=== PATIENT | female | born 1955 | race Caucasian/White ===

== ENCOUNTER 2018-08-15 12:04 | Emergency (ER) | payer OTHER ==
[~2018-08-15] VITALS: Ht 162.6 cm; Wt 107.5 kg
[2018-08-15] MEDS ORDERED: IV NORMAL SALINE 1000ML BAG 1,000 ML IV ONE (13:00)
[2018-08-15] MEDS ORDERED: ONDANSETRON PF 4 MG/2 ML VIAL. IV ONE (13:00)
[2018-08-15 13:17] LABS: CALCIUM 9.7 mg/dL (8.5-10.1); CREATININE 1.4 mg/dL (0.6-1.0); POTASSIUM 4.5 mmol/L (3.5-5.1)
--- NOTE | 2018-08-15 13:17 | RAD ---
Portable chest, 08/15/2018: HISTORY: Cough, chest tightness The heart size and pulmonary vascularity are normal. No pulmonary infiltrate is seen. There is no evidence of pleural fluid. IMPRESSION: No acute cardiopulmonary abnormality is detected. Electronically signed by: Blue Cheney MD (08/15/2018 1:13 PM) [facility]
[2018-08-15 13:23] LABS: ALBUMIN 3.4 g/dL (3.4-5.0); ALBUMIN/GLOBULIN RATIO 0.8 (1.0-1.7); TOTAL BILIRUBIN 0.6 mg/dL (0.2-1.0); TOTAL PROTEIN 7.8 g/dL (6.4-8.2)
--- NOTE | 2018-08-15 13:36 | EKG ---
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
[2018-08-15 13:45] LABS: BASO # 0.1 x10^3/uL (0.0-0.2); BASO % 1 % (0-3); EOS # 0.3 x10^3/uL (0.0-0.7); EOS % 3 % (0-3); HEMATOCRIT 44.6 % (36.0-47.0); HEMOGLOBIN 14.9 g/dL (12.0-15.5); LYMPH # 1.8 x10^3/uL (1.0-4.8); LYMPH % 20 % (24-48); MEAN CORPUSCULAR HEMOGLOBIN 25 pg (25-35); MEAN CORPUSCULAR HGB CONC 33 g/dL (31-37); MEAN CORPUSCULAR VOLUME 76 fL (79-100); MONO # 0.5 x10^3/uL (0.0-1.1); MONO % 6 % (0-9); NEUT # 6.6 x10^3uL (1.8-7.7); NEUT % 71 % (31-73); PLATELET COUNT 326 x10^3/uL (140-400); RED BLOOD COUNT 5.87 x10^6/uL (3.50-5.40); RED CELL DISTRIBUTION WIDTH 16.9 % (11.5-14.5); WHITE BLOOD COUNT 9.3 x10^3/uL (4.0-11.0)
[2018-08-15 15:39] LABS: BILIRUBIN,URINE NEGATIVE (NEG); CLARITY,URINE CLEAR; COLOR,URINE YELLOW; NITRITE,URINE NEGATIVE (NEG); PROTEIN,URINE NEGATIVE (NEG-TRACE); UROBILINOGEN,URINE 0.2 mg/dL (0.2 mg/dL)
[2018-08-15 16:00] VITALS: BP 189/62
[2018-08-15 16:10] LABS: BACTERIA,URINE FEW /HPF (0-FEW); RBC,URINE OCC /HPF (0-2); SQUAMOUS EPITHELIAL CELL,UR FEW /LPF; WBC,URINE OCC /HPF (0-4)
[2018-08-15] MEDS ORDERED: NITR100C62 PO (16:36)
--- NOTE | 2018-08-15 16:36 | PHYS DOC ---
Past Medical History Past Medical History: COPD, Diabetes-Type II, Hypertension, Other Additional Past Medical Histor: CKD, osteoarthritis, degenerative disk disease Past Surgical History: Hysterectomy, Tonsillectomy, Other Additional Past Surgical Histo: back, Alcohol Use: None Drug Use: None Adult General Chief Complaint Chief Complaint: MULTIPLE COMPLAINTS HPI HPI Patient is a 63 year old [f__sex] who presents with [] Review of Systems Review of Systems Constitutional: Denies fever or chills [] Eyes: Denies change in visual acuity, redness, or eye pain [] HENT: Denies nasal congestion or sore throat [] Respiratory: Denies cough or shortness of breath [] Cardiovascular: No additional information not addressed in HPI [] GI: Denies abdominal pain, nausea, vomiting, bloody stools or diarrhea [] : Denies dysuria or hematuria [] Musculoskeletal: Denies back pain or joint pain [] Integument: Denies rash or skin lesions [] Neurologic: Denies headache, focal weakness or sensory changes [] Endocrine: Denies polyuria or polydipsia [] All other systems were reviewed and found to be within normal limits, except as documented in this note. Current Medications Current Medications Current Medications Medications (Trade) Dose Ordered Sig/Darcie Start Time Stop Time Status Last Admin Dose Admin Ondansetron HCl (Zofran) 4 mg 1X ONCE 08/15/18 13:00 08/15/18 13:01 DC 08/15/18 13:20 4 MG Sodium Chloride 1,000 ml @ 1,000 mls/hr 1X ONCE 08/15/18 13:00 08/15/18 13:59 DC 08/15/18 13:00 1,000 MLS/HR Allergies Allergies Allergies Coded Allergies Type Severity Reaction Last Updated Verified erythromycin base Allergy Intermediate 08/15/18 Yes levofloxacin Allergy Intermediate 08/15/18 Yes oxaprozin Allergy Intermediate 08/15/18 Yes oxycodone Allergy Intermediate 08/15/18 Yes Physical Exam Physical Exam Constitutional: Well developed, well nourished, no acute distress, non-toxic appearance. [] HENT: Normocephalic, atraumatic, bilateral external ears normal, oropharynx moist, no oral exudates, nose normal. [] Eyes: PERRLA, EOMI, conjunctiva normal, no discharge. [] Neck: Normal range of motion, no tenderness, supple, no stridor. [] Cardiovascular:Heart rate regular rhythm, no murmur [] Lungs & Thorax: Bilateral breath sounds clear to auscultation [] Abdomen: Bowel sounds normal, soft, no tenderness, no masses, no pulsatile masses. [] Skin: Warm, dry, no erythema, no rash. [] Back: No tenderness, no CVA tenderness. [] Extremities: No tenderness, no cyanosis, no clubbing, ROM intact, no edema. [] Neurologic: Alert and oriented X 3, normal motor function, normal sensory function, no focal deficits noted. [] Psychologic: Affect normal, judgement normal, mood normal. [] Current Patient Data Vital Signs Vital Signs Date Time Temp Pulse Resp B/P (MAP) Pulse Ox O2 Delivery O2 Flow Rate FiO2 08/15/18 12:04 96 20 104/72 (83) 96 Room Air Lab Values Laboratory Tests Test 08/15/18 12:50 08/15/18 15:16 White Blood Count 9.3 x10^3/uL (4.0-11.0) Red Blood Count 5.87 x10^6/uL (3.50-5.40) H Hemoglobin 14.9 g/dL (12.0-15.5) Hematocrit 44.6 % (36.0-47.0) Mean Corpuscular Volume 76 fL (79-100) L Mean Corpuscular Hemoglobin 25 pg (25-35) Mean Corpuscular Hemoglobin Concent 33 g/dL (31-37) Red Cell Distribution Width 16.9 % (11.5-14.5) H Platelet Count 326 x10^3/uL (140-400) Neutrophils (%) (Auto) 71 % (31-73) Lymphocytes (%) (Auto) 20 % (24-48) L Monocytes (%) (Auto) 6 % (0-9) Eosinophils (%) (Auto) 3 % (0-3) Basophils (%) (Auto) 1 % (0-3) Neutrophils # (Auto) 6.6 x10^3uL (1.8-7.7) Lymphocytes # (Auto) 1.8 x10^3/uL (1.0-4.8) Monocytes # (Auto) 0.5 x10^3/uL (0.0-1.1) Eosinophils # (Auto) 0.3 x10^3/uL (0.0-0.7) Basophils # (Auto) 0.1 x10^3/uL (0.0-0.2) Sodium Level 135 mmol/L (136-145) L Potassium Level 4.5 mmol/L (3.5-5.1) Chloride Level 100 mmol/L (98-107) Carbon Dioxide Level 23 mmol/L (21-32) Anion Gap 12 (6-14) Blood Urea Nitrogen 22 mg/dL (7-20) H Creatinine 1.4 mg/dL (0.6-1.0) H Estimated GFR (Cockcroft-Gault) 38.0 BUN/Creatinine Ratio 16 (6-20) Glucose Level 195 mg/dL (70-99) H Calcium Level 9.7 mg/dL (8.5-10.1) Total Bilirubin 0.6 mg/dL (0.2-1.0) Aspartate Amino Transferase (AST) 13 U/L (15-37) L Alanine Aminotransferase (ALT) 12 U/L (14-59) L Alkaline Phosphatase 217 U/L (46-116) H Total Protein 7.8 g/dL (6.4-8.2) Albumin 3.4 g/dL (3.4-5.0) Albumin/Globulin Ratio 0.8 (1.0-1.7) L Urine Collection Type Unknown Urine Color Yellow Urine Clarity Clear Urine pH 6.0 Urine Specific [place] 1.025 Urine Protein Negative mg/dL (NEG-TRACE) Urine Glucose (UA) Negative mg/dL (NEG) Urine Ketones (Stick) Negative mg/dL (NEG) Urine Blood Negative (NEG) Urine Nitrite Negative (NEG) Urine Bilirubin Negative (NEG) Urine Urobilinogen Dipstick 0.2 mg/dL (0.2 mg/dL) Urine Leukocyte Esterase Trace (NEG) Urine RBC Occ /HPF (0-2) Urine WBC Occ /HPF (0-4) Urine Squamous Epithelial Cells Few /LPF Urine Bacteria Few /HPF (0-FEW) Urine Mucus Slight /LPF Laboratory Tests 08/15/18 12:50 Laboratory Tests 08/15/18 12:50 EKG EKG [] Radiology/Procedures Radiology/Procedures [] PATIENT: MURRAY KOHLI ACCOUNT: [id number] : 1955 LOCATION: ER AGE: 63 SEX: F EXAM STATUS: PRE ER ORD. PHYSICIAN: KIMBERLY SALGADO APRN REASON: cough x 1 month PROCEDURE: CHEST AP ONLY Portable chest, 08/15/2018: HISTORY: Cough, chest tightness The heart size and pulmonary vascularity are normal. No pulmonary infiltrate is seen. There is no evidence of pleural fluid. IMPRESSION: No acute cardiopulmonary abnormality is detected. Electronically signed by: Blue Cheney MD (08/15/2018 1:13 PM) [facility] DICTATED and SIGNED BY: BLUE CHENEY MD DATE: 08/15/18 2058 Course & Med Decision Making Course & Med Decision Making Pertinent Labs and Imaging studies reviewed. (See chart for details) [] Dragon Disclaimer Dragon Disclaimer This electronic medical record was generated, in whole or in part, using a voice recognition dictation system. Departure Departure Impression: Primary Impression: Urinary tract infection Disposition: 01 HOME, SELF-CARE Condition: STABLE Referrals: SARMAD PAPPAS MD (PCP) Patient Instructions: Urinary Tract Infection Additional Instructions: Take the medication as prescribed. Follow-up with your primary care provider in one week for urine recheck. If worsening return to the emergency department. Scripts Nitrofurantoin Monohyd/M-Cryst (MACROBID 100 MG CAPSULE) 100 Mg Capsule 1 CAP PO BID, #14 CAP Prov: KIMBERLY SALGADO APRN 08/15/18 KIMBERLY SALGADO APRN Aug 15, 2018 16:36
== END 2018-08-15 16:59 | disposition home or self-care (01) ==
LOC: ER 12:04
DX: N39.0 Urinary tract infection, site not specified (principal); J44.9 Chronic obstructive pulmonary disease, unspecified; I12.9 Hypertensive chronic kidney disease with stage 1 through stage 4 chronic kidney disease, or unspecified chronic kidney disease; E11.22 Type 2 diabetes mellitus with diabetic chronic kidney disease; N18.9 Chronic kidney disease, unspecified; Z90.710 Acquired absence of both cervix and uterus; Z90.89 Acquired absence of other organs
CPT/HCPCS: 36415; 71045; 80053; 81001; 85025; 87086; 93005; 96374; 99285; J2405; J7030

== ENCOUNTER 2019-06-12 16:56 | Inpatient (IN) | payer OTHER ==
[~2019-06-12] VITALS: Ht 165.1 cm; Wt 115.4 kg
[~2019-06-12 16:56] MED LIST: NITR100C62 PO
[2019-06-12] MEDS ORDERED: IV NORMAL SALINE 1000ML BAG 1,000 ML IV ONE ×3 (17:15→21:30)
[2019-06-12] MEDS ORDERED: ONDANSETRON PF 4 MG/2 ML VIAL. IV ONE (17:15)
--- NOTE | 2019-06-12 17:15 | PHYS DOC ---
Past Medical History Past Medical History: COPD, Diabetes-Type II, Hypertension, Other Additional Past Medical Histor: CKD, osteoarthritis, degenerative disk disease (TAWANNA ROTH) Past Surgical History: Hysterectomy, Tonsillectomy, Other Additional Past Surgical Histo: back, (TAWANNA ROTH) Alcohol Use: None Drug Use: None (TAWANNA ROTH) Adult General Chief Complaint Chief Complaint: GENERALIZED BODY ACHES [facility] HPI Patient is a 63 year old female with a history of diabetes presents to the ED complaining of body aches and abdominal pain �3 days. Patient states she was recently started on Involkana for her diabetes. States that she also takes metoprolol and has been having cramping-like reaction since taking them together. States her arms and legs ache and she has abdominal cramping. Rates the cramping as 6 out of 10. Patients PCP switched her to glipizide. Patient's last meal was pork roast and green beans. No recent travel. Denies fever, chills, chest pain, shortness of breath, back pain, dysuria, diarrhea or blood in stool. (TAWANNA ROTH) Review of Systems Review of Systems Constitutional: Complains of body aches. Denies fever or chills [] Eyes: Denies change in visual acuity, redness, or eye pain [] HENT: Denies nasal congestion or sore throat [] Respiratory: Denies cough or shortness of breath [] Cardiovascular: No additional information not addressed in HPI [] GI: Complains of abdominal pain. Denies nausea, vomiting, bloody stools or diarrhea [] : Denies dysuria or hematuria [] Musculoskeletal: Denies back pain or joint pain [] Integument: Denies rash or skin lesions [] Neurologic: Denies headache, focal weakness or sensory changes [] All other systems were reviewed and found to be within normal limits, except as documented in this note. (TAWANNA ROTH) Current Medications Current Medications Current Medications Medications (Trade) Dose Ordered Sig/Darcie Start Time Stop Time Status Last Admin Dose Admin Acetaminophen (Tylenol) 650 mg PRN Q4HRS PRN 06/12/19 19:15 06/13/19 19:14 Morphine Sulfate (Morphine Sulfate) 2 mg PRN Q2HR PRN 06/12/19 19:15 06/13/19 19:14 06/12/19 21:03 2 MG Ondansetron HCl (Zofran) 4 mg PRN Q8HRS PRN 06/12/19 19:15 06/13/19 19:14 Sodium Chloride 1,000 ml @ 1,000 mls/hr 1X ONCE 06/12/19 19:15 06/12/19 19:20 DC (CHILO CROCKETT MD) Allergies Allergies Allergies Coded Allergies Type Severity Reaction Last Updated Verified erythromycin base Allergy Intermediate 08/15/18 Yes levofloxacin Allergy Intermediate 08/15/18 Yes oxaprozin Allergy Intermediate 08/15/18 Yes oxycodone Allergy Intermediate 08/15/18 Yes (CHILO CROCKETT MD) Physical Exam Physical Exam Constitutional: Well developed, well nourished, no acute distress, non-toxic appearance. [] HENT: Normocephalic, atraumatic Neck: Normal range of motion, no tenderness, supple, no stridor. [] Cardiovascular:Heart rate regular rhythm, no murmur [] Lungs & Thorax: Bilateral breath sounds clear to auscultation [] Abdomen: Bowel sounds normal, soft, mild diffuse abdominal cramping. no masses, no pulsatile masses. [] Skin: Warm, dry, no erythema, no rash. [] Back: No tenderness, no CVA tenderness. [] Extremities: No tenderness, no cyanosis, no clubbing, ROM intact, no edema. [] Neurologic: Alert and oriented X 3, normal motor function, normal sensory function, no focal deficits noted. [] Psychologic: Affect normal, judgement normal, mood normal. [] (TAWANNA ROTH) Current Patient Data Vital Signs Vital Signs Date Time Temp Pulse Resp B/P (MAP) Pulse Ox O2 Delivery O2 Flow Rate FiO2 06/12/19 19:14 66 126/62 (83) Room Air 06/12/19 17:12 98.1 20 95 98.1 (CHILO CROCKETT MD) Lab Values Laboratory Tests Test 06/12/19 17:06 06/12/19 17:32 Urine Collection Type Unknown Urine Color Yellow Urine Clarity Cloudy Urine pH 5.0 Urine Specific [place] 1.015 Urine Protein Negative mg/dL (NEG-TRACE) Urine Glucose (UA) 250 mg/dL (NEG) Urine Ketones (Stick) Negative mg/dL (NEG) Urine Blood Negative (NEG) Urine Nitrite Negative (NEG) Urine Bilirubin Negative (NEG) Urine Urobilinogen Dipstick 0.2 mg/dL (0.2 mg/dL) Urine Leukocyte Esterase Trace (NEG) Urine RBC Rare /HPF (0-2) Urine WBC Occ /HPF (0-4) Urine Squamous Epithelial Cells Many /LPF Urine Bacteria Few /HPF (0-FEW) White Blood Count 11.3 x10^3/uL (4.0-11.0) H Red Blood Count 4.79 x10^6/uL (3.50-5.40) Hemoglobin 13.0 g/dL (12.0-15.5) Hematocrit 38.6 % (36.0-47.0) Mean Corpuscular Volume 81 fL (79-100) Mean Corpuscular Hemoglobin 27 pg (25-35) Mean Corpuscular Hemoglobin Concent 34 g/dL (31-37) Red Cell Distribution Width 15.0 % (11.5-14.5) H Platelet Count 284 x10^3/uL (140-400) Neutrophils (%) (Auto) 72 % (31-73) Lymphocytes (%) (Auto) 14 % (24-48) L Monocytes (%) (Auto) 9 % (0-9) Eosinophils (%) (Auto) 5 % (0-3) H Basophils (%) (Auto) 1 % (0-3) Neutrophils # (Auto) 8.1 x10^3/uL (1.8-7.7) H Lymphocytes # (Auto) 1.5 x10^3/uL (1.0-4.8) Monocytes # (Auto) 1.0 x10^3/uL (0.0-1.1) Eosinophils # (Auto) 0.6 x10^3/uL (0.0-0.7) Basophils # (Auto) 0.1 x10^3/uL (0.0-0.2) Sodium Level 127 mmol/L (136-145) L Potassium Level 4.9 mmol/L (3.5-5.1) Chloride Level 94 mmol/L (98-107) L Carbon Dioxide Level 19 mmol/L (21-32) L Anion Gap 14 (6-14) Blood Urea Nitrogen 58 mg/dL (7-20) H Creatinine 3.7 mg/dL (0.6-1.0) H Estimated GFR (Cockcroft-Gault) 12.4 BUN/Creatinine Ratio 16 (6-20) Glucose Level 182 mg/dL (70-99) H Calcium Level 8.9 mg/dL (8.5-10.1) Total Bilirubin 0.3 mg/dL (0.2-1.0) Aspartate Amino Transferase (AST) 19 U/L (15-37) Alanine Aminotransferase (ALT) 9 U/L (14-59) L Alkaline Phosphatase 128 U/L (46-116) H Creatine Kinase 186 U/L (26-192) Troponin I Quantitative < 0.017 ng/mL (0.000-0.055) Total Protein 7.5 g/dL (6.4-8.2) Albumin 3.3 g/dL (3.4-5.0) L Albumin/Globulin Ratio 0.8 (1.0-1.7) L Lipase 100 U/L (73-393) Laboratory Tests 06/12/19 17:32 Laboratory Tests 06/12/19 17:32 (CHILO CROCKETT MD) Lab Values Laboratory Tests Test 06/12/19 17:06 06/12/19 17:32 Urine Collection Type Unknown Urine Color Yellow Urine Clarity Cloudy Urine pH 5.0 Urine Specific [place] 1.015 Urine Protein Negative mg/dL (NEG-TRACE) Urine Glucose (UA) 250 mg/dL (NEG) Urine Ketones (Stick) Negative mg/dL (NEG) Urine Blood Negative (NEG) Urine Nitrite Negative (NEG) Urine Bilirubin Negative (NEG) Urine Urobilinogen Dipstick 0.2 mg/dL (0.2 mg/dL) Urine Leukocyte Esterase Trace (NEG) Urine RBC Rare /HPF (0-2) Urine WBC Occ /HPF (0-4) Urine Squamous Epithelial Cells Many /LPF Urine Bacteria Few /HPF (0-FEW) White Blood Count 11.3 x10^3/uL (4.0-11.0) H Red Blood Count 4.79 x10^6/uL (3.50-5.40) Hemoglobin 13.0 g/dL (12.0-15.5) Hematocrit 38.6 % (36.0-47.0) Mean Corpuscular Volume 81 fL (79-100) Mean Corpuscular Hemoglobin 27 pg (25-35) Mean Corpuscular Hemoglobin Concent 34 g/dL (31-37) Red Cell Distribution Width 15.0 % (11.5-14.5) H Platelet Count 284 x10^3/uL (140-400) Neutrophils (%) (Auto) 72 % (31-73) Lymphocytes (%) (Auto) 14 % (24-48) L Monocytes (%) (Auto) 9 % (0-9) Eosinophils (%) (Auto) 5 % (0-3) H Basophils (%) (Auto) 1 % (0-3) Neutrophils # (Auto) 8.1 x10^3/uL (1.8-7.7) H Lymphocytes # (Auto) 1.5 x10^3/uL (1.0-4.8) Monocytes # (Auto) 1.0 x10^3/uL (0.0-1.1) Eosinophils # (Auto) 0.6 x10^3/uL (0.0-0.7) Basophils # (Auto) 0.1 x10^3/uL (0.0-0.2) Sodium Level 127 mmol/L (136-145) L Potassium Level 4.9 mmol/L (3.5-5.1) Chloride Level 94 mmol/L (98-107) L Carbon Dioxide Level 19 mmol/L (21-32) L Anion Gap 14 (6-14) Blood Urea Nitrogen 58 mg/dL (7-20) H Creatinine 3.7 mg/dL (0.6-1.0) H Estimated GFR (Cockcroft-Gault) 12.4 BUN/Creatinine Ratio 16 (6-20) Glucose Level 182 mg/dL (70-99) H Calcium Level 8.9 mg/dL (8.5-10.1) Total Bilirubin 0.3 mg/dL (0.2-1.0) Aspartate Amino Transferase (AST) 19 U/L (15-37) Alanine Aminotransferase (ALT) 9 U/L (14-59) L Alkaline Phosphatase 128 U/L (46-116) H Creatine Kinase 186 U/L (26-192) Troponin I Quantitative < 0.017 ng/mL (0.000-0.055) Total Protein 7.5 g/dL (6.4-8.2) Albumin 3.3 g/dL (3.4-5.0) L Albumin/Globulin Ratio 0.8 (1.0-1.7) L Lipase 100 U/L (73-393) Laboratory Tests 06/12/19 17:32 Laboratory Tests 06/12/19 17:32 (TAWANNA ROTH) EKG EKG [] (TAWANNA ROTH) Radiology/Procedures Radiology/Procedures []PROCEDURE: CT ABDOMEN PELVIS WO CONTRAST Exam: CT abdomen and pelvis without contrast INDICATION: Abdominal pain TECHNIQUE: Sequential axial images through the abdomen and pelvis obtained without IV contrast. Sagittal and coronal reformatted images were reconstructed from the axial data and reviewed. Comparisons: None FINDINGS: Heart size is normal. No pericardial effusion. 4 mm pulmonary nodule right middle lobe image 2. 4 mm nodule right lower lobe image 2. Visualized lung bases are clear. No pleural effusion. Evaluation of solid organs limited secondary to noncontrast technique. Liver, spleen, pancreas, gallbladder and adrenals are unremarkable. No perinephric inflammation or hydronephrosis. No renal or ureteral calculi are identified. Bladder is distended and appears thin walled. Uterus is absent. No abnormal adnexal mass. Large and small bowel are unremarkable. Appendix is normal. No free intra-abdominal air or fluid. Abdominal aorta has a normal course and caliber. No enlarged intra-abdominal lymph nodes are identified. No suspicious osseous lesions or acute fractures. IMPRESSION: 1. No new process identified within the abdomen or pelvis. Normal appendix. No evidence for obstructive uropathy. 2. Several small pulmonary nodules largest measuring 4 mm as described above. In a low risk patient no further follow-up imaging is recommended. The high-risk patient and optional one-year follow-up CT can BE performed. (TAWANNA ROTH) Course & Med Decision Making Course & Med Decision Making Pertinent Labs and Imaging studies reviewed. (See chart for details) Patient found to have a creatinine of 3.7. Discussed with Dr. Marrero whom states Dr. Knowles is on maternity leave. She looked in her records and her previous creatinine was between 1 and 2. States they are sending her patients to [facility]. Patients pain improved in the ED. Resting comfortably at this time. []Discussed case with hospitalist, Dr. Waddell. Agrees to admission and further management of patient. Patient stable for admission. (TAWANNA ROTH) Course & Med Decision Making Staff Physician Addendum: I was working in the ER during the course of this patient's visit. I was available for consultation as needed, but I was not directly involved in the care of this patient. (CHILO CROCKETT MD) Dragon Disclaimer Dragon Disclaimer This electronic medical record was generated, in whole or in part, using a voice recognition dictation system. (TAWANNA ROTH) Departure Departure Impression: Primary Impression: Renal failure Additional Impressions: Hyponatremia Pulmonary nodule Disposition: ADMITTED INPATIENT Admitting Physician: JENNIFER (TAWANNA ROTH) Condition: STABLE Referrals: SARMAD KNOWLES MD (PCP) Problem Qualifiers TAWANNA ROTH Jun 12, 2019 17:15 CHILO CROCKETT MD Jun 12, 2019 22:14
[2019-06-12 17:17] LABS: BILIRUBIN,URINE NEGATIVE (NEG); CLARITY,URINE CLOUDY; COLOR,URINE YELLOW; NITRITE,URINE NEGATIVE (NEG); PROTEIN,URINE NEGATIVE (NEG-TRACE); UROBILINOGEN,URINE 0.2 mg/dL (0.2 mg/dL)
[2019-06-12 17:29] LABS: BACTERIA,URINE FEW /HPF (0-FEW); RBC,URINE RARE /HPF (0-2); SQUAMOUS EPITHELIAL CELL,UR MANY /LPF; WBC,URINE OCC /HPF (0-4)
[2019-06-12 17:44] LABS: BASO # 0.1 x10^3/uL (0.0-0.2); BASO % 1 % (0-3); EOS # 0.6 x10^3/uL (0.0-0.7); EOS % 5 % (0-3); HEMATOCRIT 38.6 % (36.0-47.0); LYMPH # 1.5 x10^3/uL (1.0-4.8); LYMPH % 14 % (24-48); MEAN CORPUSCULAR HEMOGLOBIN 27 pg (25-35); MEAN CORPUSCULAR HGB CONC 34 g/dL (31-37); MEAN CORPUSCULAR VOLUME 81 fL (79-100); MONO % 9 % (0-9); NEUT # 8.1 x10^3/uL (1.8-7.7); NEUT % 72 % (31-73); PLATELET COUNT 284 x10^3/uL (140-400); RED BLOOD COUNT 4.79 x10^6/uL (3.50-5.40); WHITE BLOOD COUNT 11.3 x10^3/uL (4.0-11.0)
[2019-06-12 17:55] LABS: CALCIUM 8.9 mg/dL (8.5-10.1); CREATININE 3.7 mg/dL (0.6-1.0); GFR 12.4; POTASSIUM 4.9 mmol/L (3.5-5.1)
[2019-06-12 18:00] LABS: ALBUMIN 3.3 g/dL (3.4-5.0); ALBUMIN/GLOBULIN RATIO 0.8 (1.0-1.7); TOTAL BILIRUBIN 0.3 mg/dL (0.2-1.0); TOTAL PROTEIN 7.5 g/dL (6.4-8.2)
--- NOTE | 2019-06-12 18:24 | RAD ---
Exam: CT abdomen and pelvis without contrast INDICATION: Abdominal pain TECHNIQUE: Sequential axial images through the abdomen and pelvis obtained without IV contrast. Sagittal and coronal reformatted images were reconstructed from the axial data and reviewed. Comparisons: None FINDINGS: Heart size is normal. No pericardial effusion. 4 mm pulmonary nodule right middle lobe image 2. 4 mm nodule right lower lobe image 2. Visualized lung bases are clear. No pleural effusion. Evaluation of solid organs limited secondary to noncontrast technique. Liver, spleen, pancreas, gallbladder and adrenals are unremarkable. No perinephric inflammation or hydronephrosis. No renal or ureteral calculi are identified. Bladder is distended and appears thin walled. Uterus is absent. No abnormal adnexal mass. Large and small bowel are unremarkable. Appendix is normal. No free intra-abdominal air or fluid. Abdominal aorta has a normal course and caliber. No enlarged intra-abdominal lymph nodes are identified. No suspicious osseous lesions or acute fractures. IMPRESSION: 1. No new process identified within the abdomen or pelvis. Normal appendix. No evidence for obstructive uropathy. 2. Several small pulmonary nodules largest measuring 4 mm as described above. In a low risk patient no further follow-up imaging is recommended. The high-risk patient and optional one-year follow-up CT can BE performed. Exposure: One or more of the following in the visualized dose reduction techniques were utilized for this examination: 1. Automated exposure control 2. Adjustment of the MA and/or KV according to patient size 3. Use of iterative of reconstructive technique Electronically signed by: Josue Singleton MD (06/12/2019 6:21 PM) [facility]
[2019-06-12] MEDS ORDERED: ACETAMINOPHEN 325 MG TABLET. PO PRN (19:15)
[2019-06-12] MEDS ORDERED: ONDANSETRON PF 4 MG/2 ML VIAL. IV PRN (19:15)
--- NOTE | 2019-06-12 20:10 | RAD ---
Exam: Chest one view INDICATION: Chest pain TECHNIQUE: Frontal view of the chest Comparisons: 06/15/2018 FINDINGS: The cardiomediastinal silhouette and pulmonary vessels are within normal limits. The lung and pleural spaces are clear. IMPRESSION: No acute cardiopulmonary process. Electronically signed by: Josue Singleton MD (06/12/2019 8:08 PM) [facility]
[2019-06-12] MEDS ORDERED: IV DEXTROSE 5% 250 ML BAG. IV PRN (21:00)
[2019-06-12] MEDS: INSULIN LISPRO 300 UNITS/3 ML VIAL. SQ SCH (21:00)
[2019-06-12] MEDS ORDERED: DEXTROSE 50% 25 GM / 50ML DISP.SYRIN. IV PRN (21:00)
[2019-06-12] MEDS: MORPHINE SULFATE 2 MG/ML VIAL. IV PRN (21:03)
[2019-06-12] MEDS ORDERED: CLON0.5T11 PO (22:43)
[2019-06-12] MEDS ORDERED: AMLO10TA8 PO (22:43)
[2019-06-12] MEDS ORDERED: METO-239 PO (22:43)
[2019-06-12] MEDS ORDERED: ATOR20TA PO (22:43)
[2019-06-12] MEDS ORDERED: SERT100T PO (22:43)
[2019-06-12] MEDS ORDERED: GABA600T7 PO (22:43)
[2019-06-12] MEDS ORDERED: TIZA4TAB2 PO (22:43)
[2019-06-12] MEDS ORDERED: BUDE10.2 IH (22:43)
[2019-06-12] MEDS ORDERED: OMEP40CA5 PO (22:43)
[2019-06-12] MEDS ORDERED: GABA-585 PO (22:43)
[2019-06-12] MEDS ORDERED: LISI-334 PO (22:43)
[2019-06-12 23:00] VITALS: BP 109/87
[2019-06-13] MEDS: MORPHINE SULFATE 2 MG/ML VIAL. IV PRN ×3 (00:36→14:25)
[2019-06-13] MEDS: INSULIN GLARGINE 300 UNITS/3 ML INSULN.PEN. SQ SCH ×2 (00:42→20:18)
[2019-06-13 01:51] LABS: BASO % 1 % (0-3); EOS # 0.5 x10^3/uL (0.0-0.7); EOS % 6 % (0-3); HEMATOCRIT 37.9 % (36.0-47.0); HEMOGLOBIN 12.8 g/dL (12.0-15.5); LYMPH # 1.4 x10^3/uL (1.0-4.8); LYMPH % 17 % (24-48); MEAN CORPUSCULAR HEMOGLOBIN 27 pg (25-35); MEAN CORPUSCULAR HGB CONC 34 g/dL (31-37); MEAN CORPUSCULAR VOLUME 81 fL (79-100); MONO # 0.6 x10^3/uL (0.0-1.1); MONO % 7 % (0-9); NEUT # 5.8 x10^3/uL (1.8-7.7); NEUT % 70 % (31-73); PLATELET COUNT 260 x10^3/uL (140-400); RED BLOOD COUNT 4.68 x10^6/uL (3.50-5.40); RED CELL DISTRIBUTION WIDTH 14.6 % (11.5-14.5); WHITE BLOOD COUNT 8.2 x10^3/uL (4.0-11.0)
[2019-06-13 02:08] LABS: ALBUMIN 3.2 g/dL (3.4-5.0); ALBUMIN/GLOBULIN RATIO 0.8 (1.0-1.7); CALCIUM 8.7 mg/dL (8.5-10.1); CREATININE 2.9 mg/dL (0.6-1.0); GFR 16.4; POTASSIUM 4.5 mmol/L (3.5-5.1); TOTAL BILIRUBIN 0.3 mg/dL (0.2-1.0); TOTAL PROTEIN 7.1 g/dL (6.4-8.2)
[2019-06-13 03:19] VITALS: BP 118/74
--- NOTE | 2019-06-13 05:39 | EKG ---
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
[2019-06-13] MEDS: INSULIN LISPRO 300 UNITS/3 ML VIAL. SQ SCH ×4 (07:30→20:35)
[2019-06-13 07:33] VITALS: BP 121/48
[2019-06-13] MEDS ORDERED: METOPROLOL SUCC 24HR ER 50 MG TAB.ER.24H. PO PRN (09:30)
[2019-06-13] MEDS ORDERED: LISINOPRIL 20 MG TABLET PO SCH (10:00)
[2019-06-13] MEDS ORDERED: GABAPENTIN 100 MG CAPSULE. PO SCH (10:00)
[2019-06-13] MEDS: GABAPENTIN 100 MG CAPSULE. PO SCH ×2 (11:03→11:37)
[2019-06-13] MEDS: PANTOPRAZOLE 40 MG TABLET.DR. PO SCH (11:03)
[2019-06-13] MEDS: SERTRALINE 50 MG TABLET. PO SCH (11:04)
[2019-06-13] MEDS: amLODIPine BESYLATE 10 MG TABLET PO SCH (11:04)
[2019-06-13] MEDS: clonazePAM 0.5 MG TABLET PO PRN ×2 (11:10→20:15)
[2019-06-13] MEDS: BUDESONIDE 0.5 MG/2 ML NEBU. NEB SCH ×2 (11:25→19:52)
[2019-06-13] MEDS: ALBUTEROL SULFATE 2.5 MG/3 ML NEBU. NEB SCH ×3 (11:25→19:52)
[2019-06-13 11:26] VITALS: BP 115/55
--- NOTE | 2019-06-13 11:59 | PDOC2 ---
CONSULT Date of Consult Date of Consult DATE: 06/13/19 TIME: 11:51 Reason for Consult Reason for Consult: Renal Insufficiency Identification/Chief Complaint Chief Complaint Abdominal pain, Currently feeling much better Source Source: Chart review, Patient History of Present Illness Reason for Visit: Patient is a 63 year old CF with a history of diabetes presents to the ED complaining of body aches and abdominal pain �3 days. Patient states she was recently started on Invokana for her diabetes. States that she also takes metoprolol and has been having cramping-like reaction since taking them together. States her arms and legs ache and she has abdominal cramping. Rates the cramping as 6 out of 10. Patients PCP switched her to glipizide. Patient's last meal was pork roast and green beans. No recent travel. Denies fever, chills, chest pain, She states she had a really bad diarrhea for 11/2 day , had Nausea, No Vomitong, significantly decreased PO intake. Denies Cough but mild SOB. Julio use of NSAID's or any OTC products. Denies any urinary symptoms, she reports she did notice decrease in UOP for past 1-2 days, but notes much improvement since getting IVF .No hx of Nephrolithiasis She reports Invokana started to help with Wt loss , A1C 7. She started taking it this month . Unable to tolerate Metformin due to GI symptoms Current Problem List Problem List Problems Medical Problems: (1) Hyponatremia Status: Acute (2) Pulmonary nodule Status: Acute (3) Renal failure Status: Acute Current Medications Current Medications Current Medications Ondansetron HCl (Zofran) 4 mg 1X ONCE IV Last administered on 06/12/19at 17:49; Start 06/12/19 at 17:15; Stop 06/12/19 at 17:16; Status DC Sodium Chloride 1,000 ml @ 1,000 mls/hr 1X ONCE IV Last administered on 06/12/19at 17:49; Start 06/12/19 at 17:15; Stop 06/12/19 at 18:14; Status DC Sodium Chloride 1,000 ml @ 1,000 mls/hr 1X ONCE IV ; Start 06/12/19 at 19:15; Stop 06/12/19 at 19:20; Status DC Ondansetron HCl (Zofran) 4 mg PRN Q8HRS PRN IV NAUSEA/VOMITING Last administered on 06/13/19 04:34; Start 06/12/19 at 19:15; Stop 06/13/19 at 19:14 Morphine Sulfate (Morphine Sulfate) 2 mg PRN Q2HR PRN IV PAIN Last administered on 06/13/19at 08:37; Start 06/12/19 at 19:15; Stop 06/13/19 at 19:14 Acetaminophen (Tylenol) 650 mg PRN Q4HRS PRN PO FEVER Last administered on 06/13/19 07:59; Start 06/12/19 at 19:15; Stop 06/13/19 at 19:14 Insulin Glargine (Lantus) 10 units QHS SQ Last administered on 06/13/19at 00:46; Start 06/12/19 at 22:00 Insulin Human Lispro (HumaLOG) 0-5 UNITS TIDACHC SQ Last administered on 06/13/19 08:09; Start 06/12/19 at 21:00 Dextrose (Dextrose 50%-Water Syringe) 12.5 gm PRN Q15MIN PRN IV SEE COMMENTS; Start 06/12/19 at 21:00 Dextrose 250 ml PRN Q15MIN PRN IV SEE COMMENTS; Start 06/12/19 at 21:00 Sodium Chloride 1,000 ml @ 75 mls/hr 1X ONCE IV Last administered on 06/13/19at 00:46; Start 06/12/19 at 21:30; Stop 06/13/19 at 10:49; Status DC Amlodipine Besylate (Norvasc) 10 mg DAILY PO Last administered on 06/13/19at 11:05; Start 06/13/19 at 10:00 Atorvastatin Calcium (Lipitor) 20 mg HS PO ; Start 06/13/19 at 21:00 Clonazepam (KlonoPIN) 0.5 mg PRN BID PRN PO ANXIETY / AGITATION Last administered on 06/13/19at 11:10; Start 06/13/19 at 09:30 Gabapentin (Neurontin) 100 mg BID PO ; Start 06/13/19 at 10:00; Stop 06/13/19 at 09:32; Status DC Lisinopril (Prinivil) 20 mg DAILY PO Last administered on 06/13/19at 11:05; Start 06/13/19 at 10:00 Metoprolol Succinate (Toprol Xl) 50 mg DAILY PRN PO Hypertension; Start 06/13/19 at 09:30 Budesonide (Pulmicort) 0.5 mg RTBID NEB Last administered on 06/13/19 11:25; Start 06/13/19 at 12:00 Gabapentin (Neurontin) 600 mg QHS PO ; Start 06/13/19 at 21:00 Pantoprazole Sodium (Protonix) 40 mg DAILYAC PO Last administered on 06/13/19at 11:05; Start 06/13/19 at 10:00 Sertraline HCl (Zoloft) 150 mg DAILY PO Last administered on 06/13/19 11:05; Start 06/13/19 at 10:00 Gabapentin (Neurontin) 100 mg BID@0900,1500 PO Last administered on 06/13/19at 11:05; Start 06/13/19 at 10:00 Albuterol Sulfate (Ventolin Neb Soln) 2.5 mg RTQID NEB Last administered on 06/13/19 11:25; Start 06/13/19 at 12:00 Active Scripts Active Macrobid 100 Mg Capsule (Nitrofurantoin Monohyd/M-Cryst) 100 Mg Capsule 1 Cap PO BID Reported Tizanidine Hcl 4 Mg Tablet 2 Tab PO HS Symbicort 160-4.5 Mcg Inhaler (Budesonide/Formoterol Fumarate) 10.2 Gm Hfa.aer.ad 2 Puff IH BID Zoloft (Sertraline Hcl) 100 Mg Tablet 150 Mg PO DAILY Omeprazole 40 Mg Capsule.dr 40 Mg PO DAILY Metoprolol Succinate ( Xl ) (Metoprolol Succinate) 25 Mg Tab.er.24h 50 Mg PO DAILY PRN Lisinopril 20 Mg Tablet 20 Mg PO DAILY Lipitor (Atorvastatin Calcium) 20 Mg Tablet 20 Mg PO HS Gabapentin (Gabapentin) 100 Mg Capsule 100 Mg PO BID Gabapentin 600 Mg Tablet 600 Mg PO QHS Clonazepam 0.5 Mg Tablet 0.5 Mg PO BID PRN Amlodipine Besylate 10 Mg Tablet 10 Mg PO DAILY Allergies Allergies: Coded Allergies: erythromycin base (Verified Allergy, Intermediate, 08/15/18) levofloxacin (Verified Allergy, Intermediate, 08/15/18) oxaprozin (Verified Allergy, Intermediate, 08/15/18) oxycodone (Verified Allergy, Intermediate, 08/15/18) ROS Review of System Per HPI Physical Exam Physical Exam GEN: NAD HEEN: om DRY NECK: Supple CVS: RRR RESP: CTA, Non labored GI: NT, soft : No CVA or SP tenderness, No Madden Neuro- Grossly normal Skin No Rash Vital Signs Vital Signs Date Time Temp Pulse Resp B/P (MAP) Pulse Ox O2 Delivery O2 Flow Rate FiO2 06/13/19 11:28 96 Nasal Cannula 06/13/19 11:26 97.6 70 20 115/55 (75) 97.6 Assessment & Plan GELACIO on CKD -Pre-renal (C/O Diarrhea, poor PO intake ) UA unremarkable, CT scan - Kidneys unremarkable, Renal function improving Recently started on Invokana (can cause GELACIO as well) E-Lytes stable, Currently no indication for emergent HD Continue IVF, Supportive care, Strict I/O, Avoid Nephrotoxins,Monitor Hyponatremia - Mild Corrected for glucose - mildly low CKD - per pcp baseline Cr 1 -2 Pt reports saw Renal as OP 3-4 years ago was told has CKD Renal US showed small Kidneys , CW Chr Medical disease- per Pt report States she was dced from renal clinic and has been following with PCP DM - per primary Recently started on Invokana 9she started taking it this month) , recommend holding off A1C 7.0 per Pt , Unable to Tolerate Metformin Defer to Primary for further management HTN- stable Few Lows per chart review On Lisinopril and Amlodipine, Hold if hypotensive Discussed A/P with Pt and RN Labs Labs Laboratory Tests Test 06/12/19 17:06 06/12/19 17:32 06/12/19 22:18 06/13/19 01:25 Urine Collection Type Unknown Urine Color Yellow Urine Clarity Cloudy Urine pH 5.0 Urine Specific [place] 1.015 Urine Protein Negative mg/dL (NEG-TRACE) Urine Glucose (UA) 250 mg/dL (NEG) Urine Ketones (Stick) Negative mg/dL (NEG) Urine Blood Negative (NEG) Urine Nitrite Negative (NEG) Urine Bilirubin Negative (NEG) Urine Urobilinogen Dipstick 0.2 mg/dL (0.2 mg/dL) Urine Leukocyte Esterase Trace (NEG) Urine RBC Rare /HPF (0-2) Urine WBC Occ /HPF (0-4) Urine Squamous Epithelial Cells Many /LPF Urine Bacteria Few /HPF (0-FEW) White Blood Count 11.3 x10^3/uL (4.0-11.0) 8.2 x10^3/uL (4.0-11.0) Red Blood Count 4.79 x10^6/uL (3.50-5.40) 4.68 x10^6/uL (3.50-5.40) Hemoglobin 13.0 g/dL (12.0-15.5) 12.8 g/dL (12.0-15.5) Hematocrit 38.6 % (36.0-47.0) 37.9 % (36.0-47.0) Mean Corpuscular Volume 81 fL (79-100) 81 fL (79-100) Mean Corpuscular Hemoglobin 27 pg (25-35) 27 pg (25-35) Mean Corpuscular Hemoglobin Concent 34 g/dL (31-37) 34 g/dL (31-37) Red Cell Distribution Width 15.0 % (11.5-14.5) 14.6 % (11.5-14.5) Platelet Count 284 x10^3/uL (140-400) 260 x10^3/uL (140-400) Neutrophils (%) (Auto) 72 % (31-73) 70 % (31-73) Lymphocytes (%) (Auto) 14 % (24-48) 17 % (24-48) Monocytes (%) (Auto) 9 % (0-9) 7 % (0-9) Eosinophils (%) (Auto) 5 % (0-3) 6 % (0-3) Basophils (%) (Auto) 1 % (0-3) 1 % (0-3) Neutrophils # (Auto) 8.1 x10^3/uL (1.8-7.7) 5.8 x10^3/uL (1.8-7.7) Lymphocytes # (Auto) 1.5 x10^3/uL (1.0-4.8) 1.4 x10^3/uL (1.0-4.8) Monocytes # (Auto) 1.0 x10^3/uL (0.0-1.1) 0.6 x10^3/uL (0.0-1.1) Eosinophils # (Auto) 0.6 x10^3/uL (0.0-0.7) 0.5 x10^3/uL (0.0-0.7) Basophils # (Auto) 0.1 x10^3/uL (0.0-0.2) 0.0 x10^3/uL (0.0-0.2) Sodium Level 127 mmol/L (136-145) 131 mmol/L (136-145) Potassium Level 4.9 mmol/L (3.5-5.1) 4.5 mmol/L (3.5-5.1) Chloride Level 94 mmol/L (98-107) 100 mmol/L (98-107) Carbon Dioxide Level 19 mmol/L (21-32) 21 mmol/L (21-32) Anion Gap 14 (6-14) 10 (6-14) Blood Urea Nitrogen 58 mg/dL (7-20) 54 mg/dL (7-20) Creatinine 3.7 mg/dL (0.6-1.0) 2.9 mg/dL (0.6-1.0) Estimated GFR (Cockcroft-Gault) 12.4 16.4 BUN/Creatinine Ratio 16 (6-20) 19 (6-20) Glucose Level 182 mg/dL (70-99) 229 mg/dL (70-99) Calcium Level 8.9 mg/dL (8.5-10.1) 8.7 mg/dL (8.5-10.1) Total Bilirubin 0.3 mg/dL (0.2-1.0) 0.3 mg/dL (0.2-1.0) Aspartate Amino Transf (AST/SGOT) 19 U/L (15-37) 17 U/L (15-37) Alanine Aminotransferase (ALT/SGPT) 9 U/L (14-59) 9 U/L (14-59) Alkaline Phosphatase 128 U/L (46-116) 124 U/L (46-116) Creatine Kinase 186 U/L (26-192) Troponin I Quantitative < 0.017 ng/mL (0.000-0.055) < 0.017 ng/mL (0.000-0.055) Total Protein 7.5 g/dL (6.4-8.2) 7.1 g/dL (6.4-8.2) Albumin 3.3 g/dL (3.4-5.0) 3.2 g/dL (3.4-5.0) Albumin/Globulin Ratio 0.8 (1.0-1.7) 0.8 (1.0-1.7) Lipase 100 U/L (73-393) Glucose (Fingerstick) 159 mg/dL (70-99) Test 06/13/19 07:21 06/13/19 11:20 Glucose (Fingerstick) 185 mg/dL (70-99) 188 mg/dL (70-99) Laboratory Tests Test 06/12/19 17:06 06/12/19 17:32 06/12/19 22:18 06/13/19 01:25 Urine Collection Type Unknown Urine Color Yellow Urine Clarity Cloudy Urine pH 5.0 Urine Specific [place] 1.015 Urine Protein Negative mg/dL (NEG-TRACE) Urine Glucose (UA) 250 mg/dL (NEG) Urine Ketones (Stick) Negative mg/dL (NEG) Urine Blood Negative (NEG) Urine Nitrite Negative (NEG) Urine Bilirubin Negative (NEG) Urine Urobilinogen Dipstick 0.2 mg/dL (0.2 mg/dL) Urine Leukocyte Esterase Trace (NEG) Urine RBC Rare /HPF (0-2) Urine WBC Occ /HPF (0-4) Urine Squamous Epithelial Cells Many /LPF Urine Bacteria Few /HPF (0-FEW) White Blood Count 11.3 x10^3/uL (4.0-11.0) 8.2 x10^3/uL (4.0-11.0) Red Blood Count 4.79 x10^6/uL (3.50-5.40) 4.68 x10^6/uL (3.50-5.40) Hemoglobin 13.0 g/dL (12.0-15.5) 12.8 g/dL (12.0-15.5) Hematocrit 38.6 % (36.0-47.0) 37.9 % (36.0-47.0) Mean Corpuscular Volume 81 fL (79-100) 81 fL (79-100) Mean Corpuscular Hemoglobin 27 pg (25-35) 27 pg (25-35) Mean Corpuscular Hemoglobin Concent 34 g/dL (31-37) 34 g/dL (31-37) Red Cell Distribution Width 15.0 % (11.5-14.5) 14.6 % (11.5-14.5) Platelet Count 284 x10^3/uL (140-400) 260 x10^3/uL (140-400) Neutrophils (%) (Auto) 72 % (31-73) 70 % (31-73) Lymphocytes (%) (Auto) 14 % (24-48) 17 % (24-48) Monocytes (%) (Auto) 9 % (0-9) 7 % (0-9) Eosinophils (%) (Auto) 5 % (0-3) 6 % (0-3) Basophils (%) (Auto) 1 % (0-3) 1 % (0-3) Neutrophils # (Auto) 8.1 x10^3/uL (1.8-7.7) 5.8 x10^3/uL (1.8-7.7) Lymphocytes # (Auto) 1.5 x10^3/uL (1.0-4.8) 1.4 x10^3/uL (1.0-4.8) Monocytes # (Auto) 1.0 x10^3/uL (0.0-1.1) 0.6 x10^3/uL (0.0-1.1) Eosinophils # (Auto) 0.6 x10^3/uL (0.0-0.7) 0.5 x10^3/uL (0.0-0.7) Basophils # (Auto) 0.1 x10^3/uL (0.0-0.2) 0.0 x10^3/uL (0.0-0.2) Sodium Level 127 mmol/L (136-145) 131 mmol/L (136-145) Potassium Level 4.9 mmol/L (3.5-5.1) 4.5 mmol/L (3.5-5.1) Chloride Level 94 mmol/L (98-107) 100 mmol/L (98-107) Carbon Dioxide Level 19 mmol/L (21-32) 21 mmol/L (21-32) Anion Gap 14 (6-14) 10 (6-14) Blood Urea Nitrogen 58 mg/dL (7-20) 54 mg/dL (7-20) Creatinine 3.7 mg/dL (0.6-1.0) 2.9 mg/dL (0.6-1.0) Estimated GFR (Cockcroft-Gault) 12.4 16.4 BUN/Creatinine Ratio 16 (6-20) 19 (6-20) Glucose Level 182 mg/dL (70-99) 229 mg/dL (70-99) Calcium Level 8.9 mg/dL (8.5-10.1) 8.7 mg/dL (8.5-10.1) Total Bilirubin 0.3 mg/dL (0.2-1.0) 0.3 mg/dL (0.2-1.0) Aspartate Amino Transf (AST/SGOT) 19 U/L (15-37) 17 U/L (15-37) Alanine Aminotransferase (ALT/SGPT) 9 U/L (14-59) 9 U/L (14-59) Alkaline Phosphatase 128 U/L (46-116) 124 U/L (46-116) Creatine Kinase 186 U/L (26-192) Troponin I Quantitative < 0.017 ng/mL (0.000-0.055) < 0.017 ng/mL (0.000-0.055) Total Protein 7.5 g/dL (6.4-8.2) 7.1 g/dL (6.4-8.2) Albumin 3.3 g/dL (3.4-5.0) 3.2 g/dL (3.4-5.0) Albumin/Globulin Ratio 0.8 (1.0-1.7) 0.8 (1.0-1.7) Lipase 100 U/L (73-393) Glucose (Fingerstick) 159 mg/dL (70-99) Test 06/13/19 07:21 06/13/19 11:20 Glucose (Fingerstick) 185 mg/dL (70-99) 188 mg/dL (70-99) Review All relevant outside records, renal labs, imaging studies, telemetry/EKG's were reviewed. MARLENE CASTANEDA MD Jun 13, 2019 11:59
--- NOTE | 2019-06-13 12:18 | HP ---
ADMIT DATE: CHIEF COMPLAINT: Body aches. HISTORY OF PRESENT ILLNESS: The patient is a pleasant 63-year-old female who presented to the ER with complaints of body aches. It has been occurring for 3 days, she has got associated abdominal pain rated at 9/10. She tried taking some home meds, but that did not work, describes as cramping sensation. While in the ER, she is noted to have a creatinine of 2.9 and her BUN is high at 54. She appears to have some chronic renal failure. I discussed the case with ER physician. We are going to admit the patient with consultation to Dr. Del Valle. PAST MEDICAL HISTORY: COPD, diabetes, hypertension, chronic kidney disease, osteoarthritis, degenerative disk disease, tonsillectomy, hysterectomy, and back surgery. ALLERGIES: ERYTHROMYCIN, LEVAQUIN, OXAPROZIN AND OXYCODONE. FAMILY HISTORY: Coronary artery disease. SOCIAL HISTORY: She is smoking half pack per day. No drinks or drugs. MEDICATIONS: Reviewed, please refer to the MRAD. REVIEW OF SYSTEMS: GENERAL: No history of weight change, weakness or fevers. SKIN: No bruising, hair changes or rashes. EYES: No blurred, double or loss of vision. NOSE AND THROAT: No history of nosebleeds, hoarseness or sore throat. HEART: No history of palpitations, chest pain or shortness of breath on exertion. LUNGS: Denies cough, hemoptysis, wheezing or shortness of breath. GASTROINTESTINAL: Denies changes in appetite, nausea, vomiting, diarrhea or constipation. GENITOURINARY: No history of frequency, urgency, hesitancy or nocturia. NEUROLOGIC: Denies history of numbness, tingling, tremor or weakness. PSYCHIATRIC: No history of panic, anxiety or depression. ENDOCRINE: No history of heat or cold intolerance, polyuria or polydipsia. EXTREMITIES: Denies muscle weakness, joint pain, pain on walking or stiffness. PHYSICAL EXAMINATION: VITALS: Within normal limits and are stable. GENERAL: No apparent distress. Alert and oriented. HEENT: Head is normocephalic, atraumatic, pupils were equally round and reactive to light and accommodation. NECK: Supple, no JVD, no thyromegaly was noted. LUNGS: She has decreased breath sounds. HEART: RRR, S1, S2 present. Peripheral pulses intact, no obvious murmurs were noted. ABDOMEN: Soft, nontender. Positive bowel sounds no organomegaly, normal bowel sounds. EXTREMITIES: Without any cyanosis, clubbing, or edema. Pedal pulses intact, Homans sign is negative. NEUROLOGIC: Normal speech, normal tone. A & O x3, moves all extremities, no obvious focal deficits. PSYCHIATRIC: Normal affect, normal mood. Stable. SKIN: No ulcerations or rashes, good skin turgor, no jaundice. VASCULAR: Good capillary refill, neurovascular bundle appears to be intact. LABORATORY DATA: Creatinine is 2.9. ASSESSMENT AND PLAN: Body aches and acute on chronic renal failure. The patient will be admitted. We will give her IV fluids. Consult Dr. Del Valle. Home meds, PT, OT, frequent labs. DVT prophylaxis. MAGGIE SENA DO DR: VIANNEY/martín JOB#: [id number] / [id number]
[2019-06-13 15:14] VITALS: BP 125/66
[2019-06-13] MEDS: IV NORMAL SALINE 1000ML BAG 1,000 ML IV SCH (18:00)
[2019-06-13 19:51] VITALS: BP 99/71
[2019-06-13] MEDS: ATORVASTATIN CALCIUM 20 MG TABLET PO SCH (20:15)
[2019-06-13] MEDS: GABAPENTIN 300 MG CAPSULE. PO SCH (20:15)
[2019-06-13] MEDS: LISINOPRIL 20 MG TABLET PO SCH ×2 (20:30→21:00)
[2019-06-13 22:32] VITALS: BP 88/54
[2019-06-14] VITALS (8 sets, daily range): BP systolic 67–110; BP diastolic 37–84
[2019-06-14] MEDS: IV NORMAL SALINE 1000ML BAG 1,000 ML IV SCH ×2 (05:10→20:56)
[2019-06-14] MEDS: ALBUTEROL SULFATE 2.5 MG/3 ML NEBU. NEB SCH ×4 (07:03→20:51)
[2019-06-14] MEDS: BUDESONIDE 0.5 MG/2 ML NEBU. NEB SCH ×2 (07:03→20:51)
[2019-06-14] MEDS: INSULIN LISPRO 300 UNITS/3 ML VIAL. SQ SCH ×4 (07:30→21:00)
[2019-06-14] MEDS: PANTOPRAZOLE 40 MG TABLET.DR. PO SCH (08:19)
[2019-06-14] MEDS: GABAPENTIN 100 MG CAPSULE. PO SCH ×2 (08:20→15:03)
[2019-06-14] MEDS: SERTRALINE 50 MG TABLET. PO SCH (08:20)
[2019-06-14] MEDS ORDERED: METOPROLOL SUCC 24HR ER 50 MG TAB.ER.24H. PO SCH (09:00)
[2019-06-14] MEDS: amLODIPine BESYLATE 10 MG TABLET PO SCH (09:00)
[2019-06-14] MEDS: LISINOPRIL 20 MG TABLET PO SCH (09:00)
--- NOTE | 2019-06-14 09:42 | PDOC ---
SUBJECTIVE ROS Stable, No complaints, concerned about low BP , asymptomatic OBJECTIVE Vital Signs Vital Signs Date Time Temp Pulse Resp B/P (MAP) Pulse Ox O2 Delivery O2 Flow Rate FiO2 06/14/19 09:15 87 81/43 06/14/19 07:04 98 Room Air 06/14/19 07:00 97.8 20 97.8 I & 0 Intake and Output 06/14/19 06:59 Intake Total 1440 ml Output Total 1700 ml Balance -260 ml Intake Oral 1440 ml Output Urine Total 1700 ml # Voids 3 PHYSICAL EXAM Physical Exam GEN: NAD HEEN: om DRY NECK: Supple CVS: RRR RESP: CTA, Non labored GI: NT, soft : No CVA or SP tenderness, No Madden Neuro- Grossly normal Skin No Rash DIAGNOSIS/ASSESSMENT Assessment & Plan GELACIO on CKD -Pre-renal (C/O Diarrhea, poor PO intake ) UA unremarkable, CT scan - Kidneys unremarkable, Renal function improving Recently started on Invokana (can cause GELACIO as well) Improving renal function, not at baseline yet Supportive care, Avoid Nephrotoxins,Monitor Hyponatremia - resolved CKD - per pcp baseline Cr 1 -2 Pt reports saw Renal as OP 3-4 years ago was told has CKD Renal US showed small Kidneys , CW Chr Medical disease- per Pt report States she was dced from renal clinic and has been following with PCP DM - per primary Recently started on Invokana 9she started taking it this month) , recommend holding off A1C 7.0 per Pt , Unable to Tolerate Metformin Defer to Primary for further management HTN- BP low Hold antihypertensives Per primary Recommend follow up with our office post dc(Routine/ Non urgent follow up) COMMENT/RELEVANT DATA Meds Current Medications Medications (Trade) Dose Ordered Sig/Darcie Start Time Stop Time Status Last Admin Dose Admin Acetaminophen (Tylenol) 650 mg PRN Q4HRS PRN 06/12/19 19:15 06/13/19 19:14 DC 06/13/19 07:59 650 MG Albuterol Sulfate (Ventolin Neb Soln) 2.5 mg RTQID 06/13/19 12:00 06/14/19 07:03 2.5 MG Amlodipine Besylate (Norvasc) 10 mg DAILY 06/13/19 10:00 06/13/19 11:05 10 MG Atorvastatin Calcium (Lipitor) 20 mg HS 06/13/19 21:00 06/13/19 20:19 20 MG Budesonide (Pulmicort) 0.5 mg RTBID 06/13/19 12:00 06/14/19 07:03 0.5 MG Clonazepam (KlonoPIN) 0.5 mg PRN BID PRN 06/13/19 09:30 06/13/19 20:19 0.5 MG Dextrose 250 ml PRN Q15MIN PRN 06/12/19 21:00 Dextrose (Dextrose 50%-Water Syringe) 12.5 gm PRN Q15MIN PRN 06/12/19 21:00 Gabapentin (Neurontin) 100 mg BID@0900,1500 06/13/19 10:00 06/14/19 08:20 100 MG Insulin Glargine (Lantus) 10 units QHS 06/12/19 22:00 06/13/19 20:19 10 UNITS Insulin Human Lispro (HumaLOG) 0-5 UNITS TIDACHC 06/12/19 21:00 06/13/19 20:39 2 UNITS Lisinopril (Prinivil) 20 mg BID 06/13/19 20:30 Metoprolol Succinate (Toprol Xl) 50 mg DAILY 06/14/19 09:00 Morphine Sulfate (Morphine Sulfate) 2 mg PRN Q2HR PRN 06/12/19 19:15 06/13/19 19:14 DC 06/13/19 14:26 2 MG Ondansetron HCl (Zofran) 4 mg PRN Q8HRS PRN 06/12/19 19:15 06/13/19 19:14 DC 06/13/19 04:34 4 MG Pantoprazole Sodium (Protonix) 40 mg DAILYAC 06/13/19 10:00 06/14/19 08:20 40 MG Sertraline HCl (Zoloft) 150 mg DAILY 06/13/19 10:00 06/14/19 08:20 150 MG Sodium Chloride 1,000 ml @ 75 mls/hr [id number] 06/13/19 18:00 06/14/19 05:10 75 MLS/HR Lab Laboratory Tests Test 06/13/19 11:20 06/13/19 17:02 06/13/19 20:31 06/14/19 08:05 Glucose (Fingerstick) 188 mg/dL (70-99) 195 mg/dL (70-99) 166 mg/dL (70-99) 144 mg/dL (70-99) Results All relevant outside records, renal labs, imaging studies, telemetry/EKG's were reviewed. MARLENE CASTANEDA MD Jun 14, 2019 09:42
[2019-06-14] MEDS: clonazePAM 0.5 MG TABLET PO PRN ×2 (09:50→20:56)
--- NOTE | 2019-06-14 10:21 | NUR ---
SW following pt for dc planning. Chart reviewed and discussed with RN. Pt lives at home and nephrology following. No SW needs noted at this time. Will continue to follow pending dc needs.
[2019-06-14 10:42] LABS: CALCIUM 8.5 mg/dL (8.5-10.1); CREATININE 1.6 mg/dL (0.6-1.0); GFR 32.6; POTASSIUM 4.9 mmol/L (3.5-5.1)
[2019-06-14] MEDS ORDERED: IV NORMAL SALINE 500ML BAG 500 ML IV ONE (11:30)
[2019-06-14] MEDS ORDERED: ACETAMINOPHEN 325 MG TABLET. PO PRN (11:30)
[2019-06-14] MEDS: MORPHINE SULFATE 2 MG/ML VIAL. IV PRN ×2 (11:42→18:58)
--- NOTE | 2019-06-14 12:03 | NUR ---
The patient's blood pressure at 0800 was 81/43 on the left arm, 82/40 on the right arm, heart rate is 87. The patient denies symptoms of lightheadedness, body weakness, chest pain or diaphoresis. She was told to have more fluid intake, avoid caffeinated drinks. Paged Dr. Puga, no orders received. This nurse did not administer the patient's antihypertensive meds. Retook the patient's blood pressure at 0910 BP 99/69 on left arm and patient is asymptomatic. Discussed with Dr. Puga who was rounding the unit at 1100 the BP trend of the patient, received order to give 500mLof NS bolus.
--- NOTE | 2019-06-14 13:34 | PDOC ---
[employer] PROGRESS NOTE Chief Complaint Chief Complaint Acute renal Failure COPD, diabetes hypertension chronic kidney disease osteoarthritis degenerative disk disease History of Present Illness History of Present Illness 06/14/19 Pt seen and examined at bedside Pt sitting in chair talking with NAD Vitals/I&O Vitals/I&O: Vital Signs Date Time Temp Pulse Resp B/P (MAP) Pulse Ox O2 Delivery O2 Flow Rate FiO2 06/14/19 13:25 18 97 Room Air 06/14/19 11:00 109/38 (61) 06/14/19 11:00 98.5 64 98.5 I & O 06/13/19 06/13/19 06/14/19 15:00 23:00 07:00 Intake Total 400 ml 200 ml 840 ml Output Total 250 ml 450 ml 1000 ml Balance 150 ml -250 ml -160 ml Physical Exam General: No acute distress Heart: Regular rate, Normal S1 Lungs: Clear, Other (Diminished breath sounds) Abdomen: Normal bowel sounds, No tenderness Extremities: No clubbing Skin: No breakdown, No significant lesion Labs Labs: Laboratory Tests Test 06/13/19 17:02 06/13/19 20:31 06/14/19 08:05 06/14/19 10:00 Glucose (Fingerstick) 195 mg/dL (70-99) 166 mg/dL (70-99) 144 mg/dL (70-99) Sodium Level 135 mmol/L (136-145) Potassium Level 4.9 mmol/L (3.5-5.1) Chloride Level 102 mmol/L (98-107) Carbon Dioxide Level 22 mmol/L (21-32) Anion Gap 11 (6-14) Blood Urea Nitrogen 40 mg/dL (7-20) Creatinine 1.6 mg/dL (0.6-1.0) Estimated GFR (Cockcroft-Gault) 32.6 Glucose Level 249 mg/dL (70-99) Calcium Level 8.5 mg/dL (8.5-10.1) Test 06/14/19 11:28 Glucose (Fingerstick) 190 mg/dL (70-99) Review of Systems Review of Systems: Denies headache Denies vision change Assessment and Plan Assessmemt and Plan Problems Medical Problems: (1) Hyponatremia Status: Acute (2) Pulmonary nodule Status: Acute (3) Renal failure Status: Acute Assessment Acute renal Failure COPD, diabetes hypertension chronic kidney disease osteoarthritis degenerative disk disease Plan Hold HTN meds IV fluids Duonebs PRN pain meds Ful codes Appreciate sub speciality Comment Review of Relevant I have reviewed the following items (where applicable) has been applied. Medications: Current Medications Medications (Trade) Dose Ordered Sig/Darcie Route PRN Reason Start Time Stop Time Status Last Admin Dose Admin Atorvastatin Calcium (Lipitor) 20 mg HS PO 06/13/19 21:00 06/13/19 20:19 Gabapentin (Neurontin) 600 mg QHS PO 06/13/19 21:00 06/13/19 20:19 Sodium Chloride 1,000 ml @ 75 mls/hr [id number] IV 06/13/19 18:00 06/14/19 05:10 Morphine Sulfate (Morphine Sulfate) 2 mg PRN Q2HR PRN IV PAIN 06/14/19 11:30 06/14/19 11:42 Sodium Chloride 500 ml @ 500 mls/hr 1X ONCE IV 06/14/19 11:30 06/14/19 12:29 DC 06/14/19 11:48 MAGGIE SENA III DO Jun 14, 2019 13:34
[2019-06-14] MEDS: GABAPENTIN 300 MG CAPSULE. PO SCH (20:57)
[2019-06-14] MEDS: ATORVASTATIN CALCIUM 20 MG TABLET PO SCH (20:57)
[2019-06-14] MEDS: INSULIN GLARGINE 300 UNITS/3 ML INSULN.PEN. SQ SCH (21:04)
[2019-06-15] MEDS: MORPHINE SULFATE 2 MG/ML VIAL. IV PRN ×2 (01:19→09:48)
[2019-06-15 04:00] VITALS: BP 97/60
[2019-06-15 05:17] LABS: BASO % 1 % (0-3); EOS # 0.2 x10^3/uL (0.0-0.7); EOS % 5 % (0-3); HEMATOCRIT 30.3 % (36.0-47.0); HEMOGLOBIN 10.2 g/dL (12.0-15.5); LYMPH # 1.1 x10^3/uL (1.0-4.8); LYMPH % 23 % (24-48); MEAN CORPUSCULAR HEMOGLOBIN 27 pg (25-35); MEAN CORPUSCULAR HGB CONC 34 g/dL (31-37); MEAN CORPUSCULAR VOLUME 81 fL (79-100); MONO # 0.4 x10^3/uL (0.0-1.1); MONO % 8 % (0-9); NEUT # 3.2 x10^3/uL (1.8-7.7); NEUT % 64 % (31-73); PLATELET COUNT 221 x10^3/uL (140-400); RED BLOOD COUNT 3.74 x10^6/uL (3.50-5.40)
[2019-06-15 05:40] LABS: CALCIUM 8.4 mg/dL (8.5-10.1); CREATININE 1.2 mg/dL (0.6-1.0); GFR 45.4; POTASSIUM 5.2 mmol/L (3.5-5.1)
[2019-06-15] MEDS: ALBUTEROL SULFATE 2.5 MG/3 ML NEBU. NEB SCH ×2 (07:10→11:14)
[2019-06-15] MEDS: BUDESONIDE 0.5 MG/2 ML NEBU. NEB SCH (07:10)
[2019-06-15 07:20] VITALS: BP 140/84
[2019-06-15] MEDS: INSULIN LISPRO 300 UNITS/3 ML VIAL. SQ SCH ×2 (07:30→11:30)
[2019-06-15] MEDS: SERTRALINE 50 MG TABLET. PO SCH (07:40)
[2019-06-15] MEDS: PANTOPRAZOLE 40 MG TABLET.DR. PO SCH (07:40)
[2019-06-15] MEDS: GABAPENTIN 100 MG CAPSULE. PO SCH (07:40)
--- NOTE | 2019-06-15 09:37 | PDOC ---
SUBJECTIVE ROS Stable OBJECTIVE Vital Signs Vital Signs Date Time Temp Pulse Resp B/P (MAP) Pulse Ox O2 Delivery O2 Flow Rate FiO2 06/15/19 07:20 98.3 85 16 140/84 (102) 94 Room Air 98.3 I & 0 Intake and Output 06/15/19 06:59 Intake Total 1220 ml Output Total 2800 ml Balance -1580 ml Intake Oral 1220 ml Output Urine Total 2800 ml # Voids 3 PHYSICAL EXAM Physical Exam GEN: NAD HEEN: om DRY NECK: Supple CVS: RRR RESP: CTA, Non labored GI: NT, soft : No CVA or SP tenderness, No Madden Neuro- Grossly normal Skin No Rash DIAGNOSIS/ASSESSMENT Assessment & Plan GELACIO on CKD -Pre-renal (C/O Diarrhea, poor PO intake ) UA unremarkable, CT scan - Kidneys unremarkable, Renal function improving Recently started on Invokana (can cause GELACIO as well) Hyponatremia - resolved CKD - per pcp baseline Cr 1 -2 Pt reports saw Renal as OP 3-4 years ago was told has CKD Renal US showed small Kidneys , CW Chr Medical disease- per Pt report States she was dced from renal clinic and has been following with PCP DM - per primary Recently started on Invokana 9she started taking it this month) , recommend holding off A1C 7.0 per Pt , Unable to Tolerate Metformin Defer to Primary for further management HTN- BP low Hold antihypertensives Per primary Anemia- Hgb decreased- may have been Hemoconcentrated at presentation defer to primary Recommend follow up with our office post dc(Routine/ Non urgent follow up) Will sign off COMMENT/RELEVANT DATA Meds Current Medications Medications (Trade) Dose Ordered Sig/Darcie Start Time Stop Time Status Last Admin Dose Admin Acetaminophen (Tylenol) 650 mg PRN Q6HRS PRN 06/14/19 11:30 Albuterol Sulfate (Ventolin Neb Soln) 2.5 mg RTQID 06/13/19 12:00 06/15/19 07:11 2.5 MG Amlodipine Besylate (Norvasc) 10 mg DAILY 06/13/19 10:00 06/14/19 18:34 DC 06/13/19 11:05 10 MG Atorvastatin Calcium (Lipitor) 20 mg HS 06/13/19 21:00 06/14/19 21:04 20 MG Budesonide (Pulmicort) 0.5 mg RTBID 06/13/19 12:00 06/15/19 07:11 0.5 MG Clonazepam (KlonoPIN) 0.5 mg PRN BID PRN 06/13/19 09:30 06/14/19 21:04 0.5 MG Dextrose 250 ml PRN Q15MIN PRN 06/12/19 21:00 Dextrose (Dextrose 50%-Water Syringe) 12.5 gm PRN Q15MIN PRN 06/12/19 21:00 Gabapentin (Neurontin) 100 mg BID@0900,1500 06/13/19 10:00 06/15/19 07:48 100 MG Insulin Glargine (Lantus) 10 units QHS 06/12/19 22:00 06/14/19 21:04 10 UNITS Insulin Human Lispro (HumaLOG) 0-5 UNITS TIDACHC 06/12/19 21:00 06/14/19 12:02 2 UNITS Lisinopril (Prinivil) 20 mg BID 06/13/19 20:30 06/14/19 18:34 DC Metoprolol Succinate (Toprol Xl) 50 mg DAILY 06/14/19 09:00 06/14/19 18:34 DC Morphine Sulfate (Morphine Sulfate) 2 mg PRN Q2HR PRN 06/14/19 11:30 06/15/19 01:19 2 MG Ondansetron HCl (Zofran) 4 mg PRN Q8HRS PRN 06/12/19 19:15 06/13/19 19:14 DC 06/13/19 04:34 4 MG Pantoprazole Sodium (Protonix) 40 mg DAILYAC 06/13/19 10:00 06/15/19 07:48 40 MG Sertraline HCl (Zoloft) 150 mg DAILY 06/13/19 10:00 06/15/19 07:48 150 MG Sodium Chloride 500 ml @ 500 mls/hr 1X ONCE 06/14/19 11:30 06/14/19 12:29 DC 06/14/19 11:48 500 MLS/HR Lab Laboratory Tests Test 06/14/19 10:00 06/14/19 11:28 06/14/19 16:38 06/14/19 19:08 Sodium Level 135 mmol/L (136-145) Potassium Level 4.9 mmol/L (3.5-5.1) Chloride Level 102 mmol/L (98-107) Carbon Dioxide Level 22 mmol/L (21-32) Anion Gap 11 (6-14) Blood Urea Nitrogen 40 mg/dL (7-20) Creatinine 1.6 mg/dL (0.6-1.0) Estimated GFR (Cockcroft-Gault) 32.6 Glucose Level 249 mg/dL (70-99) Calcium Level 8.5 mg/dL (8.5-10.1) Glucose (Fingerstick) 190 mg/dL (70-99) 120 mg/dL (70-99) 180 mg/dL (70-99) Test 06/15/19 05:00 06/15/19 07:46 White Blood Count 5.0 x10^3/uL (4.0-11.0) Red Blood Count 3.74 x10^6/uL (3.50-5.40) Hemoglobin 10.2 g/dL (12.0-15.5) Hematocrit 30.3 % (36.0-47.0) Mean Corpuscular Volume 81 fL (79-100) Mean Corpuscular Hemoglobin 27 pg (25-35) Mean Corpuscular Hemoglobin Concent 34 g/dL (31-37) Red Cell Distribution Width 15.0 % (11.5-14.5) Platelet Count 221 x10^3/uL (140-400) Neutrophils (%) (Auto) 64 % (31-73) Lymphocytes (%) (Auto) 23 % (24-48) Monocytes (%) (Auto) 8 % (0-9) Eosinophils (%) (Auto) 5 % (0-3) Basophils (%) (Auto) 1 % (0-3) Neutrophils # (Auto) 3.2 x10^3/uL (1.8-7.7) Lymphocytes # (Auto) 1.1 x10^3/uL (1.0-4.8) Monocytes # (Auto) 0.4 x10^3/uL (0.0-1.1) Eosinophils # (Auto) 0.2 x10^3/uL (0.0-0.7) Basophils # (Auto) 0.0 x10^3/uL (0.0-0.2) Sodium Level 137 mmol/L (136-145) Potassium Level 5.2 mmol/L (3.5-5.1) Chloride Level 106 mmol/L (98-107) Carbon Dioxide Level 22 mmol/L (21-32) Anion Gap 9 (6-14) Blood Urea Nitrogen 29 mg/dL (7-20) Creatinine 1.2 mg/dL (0.6-1.0) Estimated GFR (Cockcroft-Gault) 45.4 Glucose Level 137 mg/dL (70-99) Calcium Level 8.4 mg/dL (8.5-10.1) Glucose (Fingerstick) 128 mg/dL (70-99) Results All relevant outside records, renal labs, imaging studies, telemetry/EKG's were reviewed. MARLENE CASTANEDA MD Jun 15, 2019 09:37
[2019-06-15] MEDS: clonazePAM 0.5 MG TABLET PO PRN (09:48)
[2019-06-15] MEDS: IV NORMAL SALINE 1000ML BAG 1,000 ML IV SCH (09:48)
--- NOTE | 2019-06-15 10:08 | PDOC ---
[employer] PROGRESS NOTE Chief Complaint Chief Complaint Acute renal Failure COPD, diabetes hypertension chronic kidney disease osteoarthritis degenerative disk disease History of Present Illness History of Present Illness 06/15/19 Pt seen and examined at bedside Cr 1.2 down from 1.6 Pt is in NAD 06/14/19 Pt seen and examined at bedside Pt sitting in chair talking with NAD Vitals/I&O Vitals/I&O: Vital Signs Date Time Temp Pulse Resp B/P (MAP) Pulse Ox O2 Delivery O2 Flow Rate FiO2 06/15/19 09:48 17 Room Air 06/15/19 07:20 98.3 85 140/84 (102) 94 98.3 I & O 06/14/19 06/14/19 06/15/19 14:59 22:59 06:59 Intake Total 300 ml 540 ml 380 ml Output Total 300 ml 850 ml 1650 ml Balance 0 ml -310 ml -1270 ml Physical Exam General: No acute distress Heart: Regular rate, Normal S1 Lungs: Clear, Other (Diminished breath sounds) Abdomen: Normal bowel sounds, No tenderness Extremities: No clubbing Skin: No breakdown, No significant lesion Labs Labs: Laboratory Tests Test 06/14/19 11:28 06/14/19 16:38 06/14/19 19:08 06/15/19 05:00 Glucose (Fingerstick) 190 mg/dL (70-99) 120 mg/dL (70-99) 180 mg/dL (70-99) White Blood Count 5.0 x10^3/uL (4.0-11.0) Red Blood Count 3.74 x10^6/uL (3.50-5.40) Hemoglobin 10.2 g/dL (12.0-15.5) Hematocrit 30.3 % (36.0-47.0) Mean Corpuscular Volume 81 fL (79-100) Mean Corpuscular Hemoglobin 27 pg (25-35) Mean Corpuscular Hemoglobin Concent 34 g/dL (31-37) Red Cell Distribution Width 15.0 % (11.5-14.5) Platelet Count 221 x10^3/uL (140-400) Neutrophils (%) (Auto) 64 % (31-73) Lymphocytes (%) (Auto) 23 % (24-48) Monocytes (%) (Auto) 8 % (0-9) Eosinophils (%) (Auto) 5 % (0-3) Basophils (%) (Auto) 1 % (0-3) Neutrophils # (Auto) 3.2 x10^3/uL (1.8-7.7) Lymphocytes # (Auto) 1.1 x10^3/uL (1.0-4.8) Monocytes # (Auto) 0.4 x10^3/uL (0.0-1.1) Eosinophils # (Auto) 0.2 x10^3/uL (0.0-0.7) Basophils # (Auto) 0.0 x10^3/uL (0.0-0.2) Sodium Level 137 mmol/L (136-145) Potassium Level 5.2 mmol/L (3.5-5.1) Chloride Level 106 mmol/L (98-107) Carbon Dioxide Level 22 mmol/L (21-32) Anion Gap 9 (6-14) Blood Urea Nitrogen 29 mg/dL (7-20) Creatinine 1.2 mg/dL (0.6-1.0) Estimated GFR (Cockcroft-Gault) 45.4 Glucose Level 137 mg/dL (70-99) Calcium Level 8.4 mg/dL (8.5-10.1) Test 06/15/19 07:46 Glucose (Fingerstick) 128 mg/dL (70-99) Review of Systems Review of Systems: no co weakness no co CP Assessment and Plan Assessmemt and Plan Problems Medical Problems: (1) Hyponatremia Status: Acute (2) Pulmonary nodule Status: Acute (3) Renal failure Status: Acute Assessment Acute renal Failure COPD, diabetes hypertension chronic kidney disease osteoarthritis degenerative disk disease Plan DC home DVT prophylaxis PT/OT Home Meds Full code Comment Review of Relevant I have reviewed the following items (where applicable) has been applied. Medications: Current Medications Medications (Trade) Dose Ordered Sig/Darcie Route PRN Reason Start Time Stop Time Status Last Admin Dose Admin Morphine Sulfate (Morphine Sulfate) 2 mg PRN Q2HR PRN IV PAIN 06/14/19 11:30 06/15/19 09:48 Sodium Chloride 500 ml @ 500 mls/hr 1X ONCE IV 06/14/19 11:30 06/14/19 12:29 DC 06/14/19 11:48 MAGGIE SENA III DO Jun 15, 2019 10:08
[2019-06-15 11:00] VITALS: BP 89/36
--- NOTE | 2019-06-15 11:15 | DS ---
DATE OF DISCHARGE: 06/15/2019 ADMISSION DIAGNOSIS: Acute renal failure secondary to nausea, vomiting, and diarrhea. DISCHARGE DIAGNOSES: Resolving gastroenteritis, resolving renal failure, history of chronic obstructive pulmonary disease. HOSPITAL COURSE: The patient is a pleasant 63-year-old female who has chronic obstructive pulmonary disease, but actually presented with nausea, vomiting, diarrhea and gastroenteritis. She had bumped her creatinine up to 1.6. We admitted the patient, consulted Nephrology, gave her fluids, home meds, and PT/OT. Over the past couple of days, she has returned to her baseline. I saw her this morning. Her heart tones are normal. Lungs are clear. We plan to discharge. DISPOSITION: Home. ACTIVITY: As tolerated. DIET: Low sodium. MEDICATIONS: Please see the MRAD. TOTAL TIME: 32 minutes. MAGGIE SENA DO DR: VIANNEY/martín JOB#: [id number] / [id number]
[2019-06-15 11:58] VITALS: BP 128/57
--- NOTE | 2019-06-15 14:36 | NUR ---
Discharge instructions given to patient regarding follow up appointment with her Primary Care Physician in [address] Davison in 2-3 months. Contact information given. Education given to patient and informed her to check her blood pressure daily. Patient verbalized understanding.
[2019-06-15 14:40] VITALS: BP 152/51
== END 2019-06-15 14:50 | disposition home or self-care (01) | DRG 391 ==
LOC: ER 16:56 → ED HOLD 19:17 → OBSVTOIN 19:27 → ED HOLD 21:55 → 6 SOUTH 22:00
PROVIDERS: ADMIT Internal Medicine; ATTEND Internal Medicine
DX: K52.9 Noninfective gastroenteritis and colitis, unspecified (principal); N17.0 Acute kidney failure with tubular necrosis; E87.1 Hypo-osmolality and hyponatremia; E11.22 Type 2 diabetes mellitus with diabetic chronic kidney disease; F17.210 Nicotine dependence, cigarettes, uncomplicated; I12.9 Hypertensive chronic kidney disease with stage 1 through stage 4 chronic kidney disease, or unspecified chronic kidney disease; J44.9 Chronic obstructive pulmonary disease, unspecified; M19.90 Unspecified osteoarthritis, unspecified site; N18.9 Chronic kidney disease, unspecified; R91.1 Solitary pulmonary nodule; D64.9 Anemia, unspecified; Z82.49 Family history of ischemic heart disease and other diseases of the circulatory system; Z90.710 Acquired absence of both cervix and uterus; Z88.8 Allergy status to other drugs, medicaments and biological substances
CPT/HCPCS: 36415; 71045; 74176; 80048; 80053; 81001; 82550; 82962; 83690; 84484; 85025; 93005; 94640; 94760; 96374; G0379; J1815; J2270; J2405; J7030; J7040; J7613; J7626; 99285-25; G0378

== ENCOUNTER 2019-06-17 07:03 | Emergency (ER) | payer OTHER ==
[~2019-06-17] VITALS: Ht 165.1 cm; Wt 115.2 kg
[~2019-06-17 07:03] MED LIST changes: +AMLO10TA8 PO; +ATOR20TA PO; +BUDE10.2 IH; +CLON-77 PO; +GABA-585 PO; +GABA600T7 PO; +LISI-334 PO; +METO-239 PO; +OMEP40CA5 PO; +SERT100T PO; +TIZA4TAB2 PO
[2019-06-17] MEDS ORDERED: IV NORMAL SALINE 1000ML BAG 1,000 ML IV ONE (07:30)
[2019-06-17] MEDS ORDERED: FAMOTIDINE 20 MG/2 ML VIAL IVP ONE (07:30)
[2019-06-17] MEDS ORDERED: ONDANSETRON PF 4 MG/2 ML VIAL. IV ONE (07:30)
[2019-06-17 08:01] LABS: BASO # 0.1 x10^3/uL (0.0-0.2); BASO % 1 % (0-3); EOS # 0.2 x10^3/uL (0.0-0.7); EOS % 3 % (0-3); HEMATOCRIT 39.2 % (36.0-47.0); HEMOGLOBIN 13.4 g/dL (12.0-15.5); LYMPH # 1.1 x10^3/uL (1.0-4.8); LYMPH % 15 % (24-48); MEAN CORPUSCULAR HEMOGLOBIN 27 pg (25-35); MEAN CORPUSCULAR HGB CONC 34 g/dL (31-37); MEAN CORPUSCULAR VOLUME 80 fL (79-100); MONO # 0.5 x10^3/uL (0.0-1.1); MONO % 7 % (0-9); NEUT # 5.8 x10^3/uL (1.8-7.7); NEUT % 75 % (31-73); PLATELET COUNT 277 x10^3/uL (140-400); RED CELL DISTRIBUTION WIDTH 15.2 % (11.5-14.5); WHITE BLOOD COUNT 7.8 x10^3/uL (4.0-11.0)
[2019-06-17 08:12] LABS: CALCIUM 9.2 mg/dL (8.5-10.1); CREATININE 1.1 mg/dL (0.6-1.0); GFR 50.2; POTASSIUM 4.4 mmol/L (3.5-5.1)
[2019-06-17 08:18] LABS: ALBUMIN 3.3 g/dL (3.4-5.0); ALBUMIN/GLOBULIN RATIO 0.8 (1.0-1.7); TOTAL BILIRUBIN 0.5 mg/dL (0.2-1.0); TOTAL PROTEIN 7.3 g/dL (6.4-8.2)
[2019-06-17 08:58] LABS: BILIRUBIN,URINE NEGATIVE (NEG); CLARITY,URINE CLOUDY; COLOR,URINE YELLOW; NITRITE,URINE NEGATIVE (NEG); PH,URINE 5.5; PROTEIN,URINE NEGATIVE (NEG-TRACE); UROBILINOGEN,URINE 0.2 mg/dL (0.2 mg/dL)
[2019-06-17 09:13] LABS: RBC,URINE 0 /HPF (0-2)
[2019-06-17 09:14] LABS: BACTERIA,URINE FEW /HPF (0-FEW); SQUAMOUS EPITHELIAL CELL,UR MANY /LPF
--- NOTE | 2019-06-17 10:13 | PHYS DOC ---
Past Medical History Past Medical History: COPD, Diabetes-Type II, Hypertension, Other Additional Past Medical Histor: CKD, osteoarthritis, degenerative disk disease Past Surgical History: Hysterectomy, Tonsillectomy, Other Additional Past Surgical Histo: back, Alcohol Use: None Drug Use: None Adult General Chief Complaint Chief Complaint: NAUSEA/VOMITING/DIARRHA HPI HPI Patient is a 63 year old female who presents with nausea, epigastric pain and diarrhea. Patient was released from the hospital 2 days ago for treatment of kidney injury with vomiting and diarrhea. States diarrhea return yesterday which additional described cyanosis. Reports occasional normal cramping. No fever chills, sweats. Reports nausea after eating. She is able to tolerate oral intake. No other acute symptoms or complaint. ] Review of Systems Review of Systems ROS as per HPI All other systems were reviewed and found to be within normal limits, except as documented in this note. Current Medications Current Medications Current Medications Medications (Trade) Dose Ordered Sig/Darcie Start Time Stop Time Status Last Admin Dose Admin Famotidine (Pepcid Vial) 20 mg 1X ONCE 06/17/19 07:30 06/17/19 07:36 DC 06/17/19 07:50 20 MG Lorazepam (Ativan Inj) 1 mg 1X ONCE 06/17/19 08:00 06/17/19 08:01 DC 06/17/19 08:12 1 MG Lorazepam (Ativan) 1 mg 1X ONCE 06/17/19 10:15 06/17/19 10:16 UNV Ondansetron HCl (Zofran) 4 mg 1X ONCE 06/17/19 07:30 06/17/19 07:31 DC 06/17/19 07:50 4 MG Sodium Chloride 1,000 ml @ 1,000 mls/hr 1X ONCE 06/17/19 07:30 06/17/19 08:29 DC 06/17/19 07:50 1,000 MLS/HR Allergies Allergies Allergies Coded Allergies Type Severity Reaction Last Updated Verified erythromycin base Allergy Intermediate 08/15/18 Yes levofloxacin Allergy Intermediate 08/15/18 Yes oxaprozin Allergy Intermediate 08/15/18 Yes oxycodone Allergy Intermediate 08/15/18 Yes Physical Exam Physical Exam Constitutional: Well developed, well nourished, no acute distress, non-toxic appearance. [] HENT: Normocephalic, atraumatic, bilateral external ears normal, oropharynx moist, nose normal. [] Eyes: PERRLA, EOMI, conjunctiva normal. [] Neck: Normal range of motion, no tenderness. [] Cardiovascular:Heart rate regular rhythm, no murmur. [] Lungs & Thorax: Bilateral breath sounds clear to auscultation [] Abdomen: Bowel sounds normal, soft, no tenderness, obesity compromising exam. [] Skin: Warm, dry, no erythema, no rash. [] Back: No tenderness, no CVA tenderness. [] Extremities: No tenderness, no cyanosis. [] Neurologic: Alert and oriented X 3, normal motor function, normal sensory function, no focal deficits noted. [] Psychologic: Affect normal, judgement normal, mood normal. [] Current Patient Data Vital Signs Vital Signs Date Time Temp Pulse Resp B/P (MAP) Pulse Ox O2 Delivery O2 Flow Rate FiO2 06/17/19 07:04 98.3 112 21 163/100 (121) 98 Room Air 98.3 Lab Values Laboratory Tests Test 06/17/19 07:53 06/17/19 08:50 White Blood Count 7.8 x10^3/uL (4.0-11.0) Red Blood Count 4.90 x10^6/uL (3.50-5.40) Hemoglobin 13.4 g/dL (12.0-15.5) Hematocrit 39.2 % (36.0-47.0) Mean Corpuscular Volume 80 fL (79-100) Mean Corpuscular Hemoglobin 27 pg (25-35) Mean Corpuscular Hemoglobin Concent 34 g/dL (31-37) Red Cell Distribution Width 15.2 % (11.5-14.5) H Platelet Count 277 x10^3/uL (140-400) Neutrophils (%) (Auto) 75 % (31-73) H Lymphocytes (%) (Auto) 15 % (24-48) L Monocytes (%) (Auto) 7 % (0-9) Eosinophils (%) (Auto) 3 % (0-3) Basophils (%) (Auto) 1 % (0-3) Neutrophils # (Auto) 5.8 x10^3/uL (1.8-7.7) Lymphocytes # (Auto) 1.1 x10^3/uL (1.0-4.8) Monocytes # (Auto) 0.5 x10^3/uL (0.0-1.1) Eosinophils # (Auto) 0.2 x10^3/uL (0.0-0.7) Basophils # (Auto) 0.1 x10^3/uL (0.0-0.2) Sodium Level 137 mmol/L (136-145) Potassium Level 4.4 mmol/L (3.5-5.1) Chloride Level 101 mmol/L (98-107) Carbon Dioxide Level 22 mmol/L (21-32) Anion Gap 14 (6-14) Blood Urea Nitrogen 18 mg/dL (7-20) Creatinine 1.1 mg/dL (0.6-1.0) H Estimated GFR (Cockcroft-Gault) 50.2 BUN/Creatinine Ratio 16 (6-20) Glucose Level 159 mg/dL (70-99) H Calcium Level 9.2 mg/dL (8.5-10.1) Total Bilirubin 0.5 mg/dL (0.2-1.0) Aspartate Amino Transferase (AST) 28 U/L (15-37) Alanine Aminotransferase (ALT) 10 U/L (14-59) L Alkaline Phosphatase 114 U/L (46-116) Troponin I Quantitative < 0.017 ng/mL (0.000-0.055) Total Protein 7.3 g/dL (6.4-8.2) Albumin 3.3 g/dL (3.4-5.0) L Albumin/Globulin Ratio 0.8 (1.0-1.7) L Urine Collection Type Unknown Urine Color Yellow Urine Clarity Cloudy Urine pH 5.5 Urine Specific [place] 1.015 Urine Protein Negative mg/dL (NEG-TRACE) Urine Glucose (UA) 250 mg/dL (NEG) Urine Ketones (Stick) 15 mg/dL (NEG) Urine Blood Negative (NEG) Urine Nitrite Negative (NEG) Urine Bilirubin Negative (NEG) Urine Urobilinogen Dipstick 0.2 mg/dL (0.2 mg/dL) Urine Leukocyte Esterase Small (NEG) Urine RBC 0 /HPF (0-2) Urine WBC 1-4 /HPF (0-4) Urine Squamous Epithelial Cells Many /LPF Urine Bacteria Few /HPF (0-FEW) Laboratory Tests 06/17/19 07:53 Laboratory Tests 06/17/19 07:53 EKG EKG [EKG: NSR, no acute ST changes. ] Radiology/Procedures Radiology/Procedures [] Course & Med Decision Making Course & Med Decision Making Pertinent Labs and Imaging studies reviewed. (See chart for details) [No vomiting ED. Abdomen soft, minimally tender on repeat evaluation. Symptoms improved with treatment. Recommend continued supportive care, watchful waiting and close PCP follow-up. Return precautions reviewed] Dragon Disclaimer Dragon Disclaimer This electronic medical record was generated, in whole or in part, using a voice recognition dictation system. Departure Departure Impression: Primary Impression: Nausea & vomiting Disposition: HOME, SELF-CARE Condition: GOOD Referrals: SARMAD PAPPAS MD (PCP) Patient Instructions: Nausea and Vomiting, [id number] Additional Instructions: Please go home and rest. Take nausea medications as directed. Take Imodium as needed for diarrhea. Drink clear liquids for the next 12 hours then gradually increase to a bland diet. Scripts Ondansetron Hcl (ZOFRAN) 4 Mg Tablet 1 TAB PO Q6HRS, #10 TAB 0 Refills Prov: LESLYE KEATING DO 06/17/19 LESLYE KEATING DO Jun 17, 2019 10:13
[2019-06-17] MEDS ORDERED: LORazepam 0.5 MG TABLET PO ONE (10:15)
[2019-06-17 10:17] VITALS: BP 194/105
[2019-06-17] MEDS ORDERED: ONDA4TAB7 PO (10:25)
--- NOTE | 2019-06-18 10:04 | EKG ---
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
== END 2019-06-17 10:35 | disposition home or self-care (01) ==
LOC: ER 07:03
DX: R11.2 Nausea with vomiting, unspecified (principal); R10.13 Epigastric pain; R19.7 Diarrhea, unspecified; E11.22 Type 2 diabetes mellitus with diabetic chronic kidney disease; I12.9 Hypertensive chronic kidney disease with stage 1 through stage 4 chronic kidney disease, or unspecified chronic kidney disease; N18.9 Chronic kidney disease, unspecified; J44.9 Chronic obstructive pulmonary disease, unspecified; Z90.710 Acquired absence of both cervix and uterus; Z88.1 Allergy status to other antibiotic agents; Z88.5 Allergy status to narcotic agent; Z88.8 Allergy status to other drugs, medicaments and biological substances
CPT/HCPCS: 36415; 80053; 81001; 84484; 85025; 87086; 93005; 96361; 96374; 96375; 99285; J2060; J2405; J3490; J7030

== ENCOUNTER 2019-11-12 14:26 | Emergency (ER) | payer OTHER ==
[~2019-11-12 14:26] MED LIST changes: +OMEP40CA45 PO; -OMEP40CA5 PO; +ONDA4TAB7 PO
[2019-11-12] MEDS ORDERED: IPRATRPIUM/ALBUTEROL 0.5/2.5MG 3 ML NEBU. NEB STA (14:39)
[2019-11-12] MEDS ORDERED: fentaNYL PF VIAL 100 MCG/2 ML VIAL IV STA (14:43)
--- NOTE | 2019-11-12 14:48 | PHYS DOC ---
Past Medical History Past Medical History: COPD, Diabetes-Type II, Hypertension, Other Additional Past Medical Histor: CKD, osteoarthritis, degenerative disk disease Past Surgical History: Hysterectomy, Tonsillectomy, Other Additional Past Surgical Histo: back, Alcohol Use: None Drug Use: None Adult General Chief Complaint Chief Complaint: MULTIPLE COMPLAINTS HPI HPI Patient is a 64 year old female who presents with shortness of breath, cough, bilateral leg swelling, quotations frothy urine"'s, headache, itching, fatigue, lower back pain has been ongoing for 2-3 days. Patient also states she's had associated symptoms include fatigue, and bilateral blurry vision. The patient has a history of chronic kidney disease, COPD, diabetes. Reports her pain as 7 out of 10 in severity and sharp. Review of Systems Review of Systems Constitutional: Denies fever or chills [] Eyes: Denies change in visual acuity, redness, or eye pain [] HENT: Denies nasal congestion or sore throat [] Respiratory: Reports cough and shortness of breath. Cardiovascular: No additional information not addressed in HPI [] GI: Denies abdominal pain, nausea, vomiting, bloody stools or diarrhea [] : Reports "frothy urine". Musculoskeletal: Reports back pain. Integument: Reports itching. Neurologic: Reports headache, denies focal weakness or sensory changes [] Endocrine: Denies polyuria or polydipsia [] Complete systems were reviewed and found to be within normal limits, except as documented in this note. Current Medications Current Medications Current Medications Medications (Trade) Dose Ordered Sig/Darcie Start Time Stop Time Status Last Admin Dose Admin Albuterol/ Ipratropium (Duoneb) 3 ml 1X STAT 11/12/19 14:39 11/12/19 14:45 DC 11/12/19 14:59 3 ML Fentanyl Citrate (Fentanyl 2ml Vial) 50 mcg 1X STAT 11/12/19 14:43 11/12/19 14:45 DC 11/12/19 14:47 50 MCG Allergies Allergies Allergies Coded Allergies Type Severity Reaction Last Updated Verified erythromycin base Allergy Intermediate 08/15/18 Yes levofloxacin Allergy Intermediate 08/15/18 Yes oxaprozin Allergy Intermediate 08/15/18 Yes oxycodone Allergy Intermediate 08/15/18 Yes Physical Exam Physical Exam Constitutional: Well developed, well nourished, no acute distress, non-toxic appearance. [] HENT: Normocephalic, atraumatic, bilateral external ears normal, oropharynx moist, no oral exudates, nose normal. [] Eyes: PERRLA, EOMI, conjunctiva normal, no discharge. [] Neck: Normal range of motion, no tenderness, supple, no stridor. [] Cardiovascular:Heart rate regular rhythm, no murmur [] Lungs & Thorax: Bilateral breath sounds clear to auscultation [] Abdomen: Bowel sounds normal, soft, no tenderness, no masses, no pulsatile masses. [] Skin: Warm, dry, no erythema, no rash, pedal edema 1/4 bilateral legs. Back: L sided back tenderness, no CVA tenderness. [] Neurologic: Alert and oriented X 3, normal motor function, normal sensory func tion, no focal deficits noted. [] Psychologic: Affect normal, judgement normal, mood normal. [] Current Patient Data Vital Signs Vital Signs Date Time Temp Pulse Resp B/P (MAP) Pulse Ox O2 Delivery O2 Flow Rate FiO2 11/12/19 14:59 99 Room Air 11/12/19 14:47 22 11/12/19 14:32 97.6 85 188/72 (110) 97.6 Lab Values Laboratory Tests Test 11/12/19 14:28 11/12/19 14:38 11/12/19 16:28 OY-Ypd-U-Type Natriuretic Peptide 293 pg/mL (0-124) H White Blood Count 6.9 x10^3/uL (4.0-11.0) Red Blood Count 4.81 x10^6/uL (3.50-5.40) Hemoglobin 12.2 g/dL (12.0-15.5) Hematocrit 36.3 % (36.0-47.0) Mean Corpuscular Volume 76 fL (79-100) L Mean Corpuscular Hemoglobin 25 pg (25-35) Mean Corpuscular Hemoglobin Concent 34 g/dL (31-37) Red Cell Distribution Width 17.5 % (11.5-14.5) H Platelet Count 236 x10^3/uL (140-400) Neutrophils (%) (Auto) 59 % (31-73) Lymphocytes (%) (Auto) 23 % (24-48) L Monocytes (%) (Auto) 7 % (0-9) Eosinophils (%) (Auto) 10 % (0-3) H Basophils (%) (Auto) 1 % (0-3) Neutrophils # (Auto) 4.0 x10^3/uL (1.8-7.7) Lymphocytes # (Auto) 1.6 x10^3/uL (1.0-4.8) Monocytes # (Auto) 0.5 x10^3/uL (0.0-1.1) Eosinophils # (Auto) 0.7 x10^3/uL (0.0-0.7) Basophils # (Auto) 0.1 x10^3/uL (0.0-0.2) Sodium Level 138 mmol/L (136-145) Potassium Level 4.8 mmol/L (3.5-5.1) Chloride Level 102 mmol/L (98-107) Carbon Dioxide Level 28 mmol/L (21-32) Anion Gap 8 (6-14) Blood Urea Nitrogen 24 mg/dL (7-20) H Creatinine 1.3 mg/dL (0.6-1.0) H Estimated GFR (Cockcroft-Gault) 41.2 BUN/Creatinine Ratio 18 (6-20) Glucose Level 164 mg/dL (70-99) H Calcium Level 8.4 mg/dL (8.5-10.1) L Total Bilirubin 0.3 mg/dL (0.2-1.0) Aspartate Amino Transferase (AST) 13 U/L (15-37) L Alanine Aminotransferase (ALT) 7 U/L (14-59) L Alkaline Phosphatase 127 U/L (46-116) H Troponin I Quantitative < 0.017 ng/mL (0.000-0.055) Total Protein 6.6 g/dL (6.4-8.2) Albumin 3.3 g/dL (3.4-5.0) L Albumin/Globulin Ratio 1.0 (1.0-1.7) Lipase 111 U/L (73-393) Procalcitonin < 0.10 ng/mL (0.00-0.10) Urine Collection Type Unknown Urine Color Yellow Urine Clarity Clear Urine pH 6.0 Urine Specific [place] 1.010 Urine Protein Negative mg/dL (NEG-TRACE) Urine Glucose (UA) Negative mg/dL (NEG) Urine Ketones (Stick) Negative mg/dL (NEG) Urine Blood Negative (NEG) Urine Nitrite Negative (NEG) Urine Bilirubin Negative (NEG) Urine Urobilinogen Dipstick 0.2 mg/dL (0.2 mg/dL) Urine Leukocyte Esterase Negative (NEG) Urine RBC 0 /HPF (0-2) Urine WBC 0 /HPF (0-4) Urine Squamous Epithelial Cells Few /LPF Urine Bacteria 0 /HPF (0-FEW) Laboratory Tests 11/12/19 14:38 Laboratory Tests 11/12/19 14:38 EKG EKG EKG interpreted by Dr. Sameer Worthington with rate of 63. [] Radiology/Procedures Radiology/Procedures [facility] [address] [place], [place] [id number] IMAGING REPORT Signed PATIENT: MURRAY KOHLI ACCOUNT: [id number] : 1955 LOCATION: ER AGE: 64 SEX: F EXAM STATUS: REG ER ORD. PHYSICIAN: JOHN DÍAZ APRN REASON: L sided flank pain PROCEDURE: CT ABDOMEN PELVIS WO CONTRAST CT scan of the abdomen and pelvis without contrast 11/12/2019 CLINICAL HISTORY: Left flank pain. TECHNIQUE: Unenhanced, contiguous, 2 mm axial sections were obtained through the abdomen and pelvis. One or more of the following individualized dose reduction techniques were utilized for this study: 1. Automated exposure control. 2. Adjustment of the mA and/or kV according to patient size. 3. Use of iterative reconstruction technique. FINDINGS: Comparison study is dated 06/12/2019. Images through the lung bases demonstrate minimal dependent subsegmental atelectasis bilaterally. There is mild cardiomegaly. The liver, spleen, pancreas and adrenal glands are within normal limits. No renal or ureteral calculus is seen. No significant obstruction of either collecting system is noted. Atherosclerotic calcification of the abdominal aorta and its branches is noted. The abdominal aorta tapers normally. The gallbladder is contracted. No free fluid or free air is within the abdomen. There is no evidence of bowel obstruction. The appendix is well-visualized and is within normal limits. Images through the pelvis demonstrate the urinary bladder distended with urine. Calcifications are seen within the pelvis consistent with phleboliths. Scattered diverticula are seen involving the sigmoid colon. No inflammatory changes are seen in the adjacent fat. No free fluid is noted. Very mild S-shaped curvature of the thoracolumbar spine is seen. Degenerative changes are seen involving the thoracic and throughout the lumbar spine along with both hips. IMPRESSION: No acute abnormality is seen. Electronically signed by: Regan Bauer MD (11/12/2019 3:40 PM) [facility] DICTATED and SIGNED BY: REGAN BAUER MD DATE: 11/12/19 1540 [facility] [address] [place] [address] IMAGING REPORT Signed PATIENT: MURRAY KOHLI ACCOUNT: [id number] : 1955 LOCATION: ER AGE: 64 SEX: F EXAM STATUS: REG ER ORD. PHYSICIAN: JOHN DÍAZ APRN REASON: dizziness, blurry vision bilaterally PROCEDURE: CT HEAD WO CONTRAST CT head without contrast dated 11/12/2019. No comparison available. CLINICAL INDICATION: Dizziness and blurry vision. TECHNIQUE: Contiguous axial imaging the head was performed from skull base to vertex. No contrast administered. One or more of the following individualized dose reduction techniques were utilized for this examination: 1. Automated exposure control 2. Adjustment of the mA and/or kV according to patient size 3. Use of iterative reconstruction technique FINDINGS: Ventricles and sulci are within normal limits for age. No midline shift or mass effect. Brain parenchyma is of normal attenuation. No hemorrhage or extra axial collection. Posterior fossa and brainstem unremarkable. Visualized paranasal sinuses and mastoid air cells are clear. No apparent calvarial abnormality. IMPRESSION: No evidence of acute intracranial abnormality. Electronically signed by: John Nguyen MD (11/12/2019 3:37 PM) [facility] DICTATED and SIGNED BY: JOHN NGUYEN MD DATE: 11/12/19 1537 [][facility] [address] [place] [address] IMAGING REPORT Signed PATIENT: MURRAY KOHLI ACCOUNT: [id number] : 1955 LOCATION: ER AGE: 64 SEX: F EXAM STATUS: PRE ER ORD. PHYSICIAN: JOHN DÍAZ APRN REASON: shortness of breath PROCEDURE: CHEST PA & LATERAL Exam performed: 2 views of the chest. Indication: Shortness of breath Date of Service: 11/12/2019 3:42 PM . Comparison : One view chest from June 12, 2019 Findings: PA and lateral radiographs of the chest reveal a normal cardiomediastinal contour. The lungs are clear. No pleural fluid is seen. The visualized osseous structures are unremarkable. Impression: No acute cardiopulmonary process seen. Electronically signed by: Kezia Dupree MD (11/12/2019 3:00 PM) [facility] DICTATED and SIGNED BY: KEZIA DUPREE MD DATE: 11/12/19 1500 Course & Med Decision Making Course & Med Decision Making Pertinent Labs and Imaging studies reviewed. (See chart for details) Will get EKG, Chest x-ray, CT scan of head/abdomen/pelvis. Will get labs, and urine. Will give breathing treatment. Labs are unremarkable. Creatinine is 1.3 (less than has been is past. Appears to be stable). Urine is unremarkable. Will d/c home to follow up with primary care. Dragon Disclaimer Dragon Disclaimer This electronic medical record was generated, in whole or in part, using a voice recognition dictation system. Departure Departure Impression: Primary Impression: COPD exacerbation Disposition: HOME, SELF-CARE Condition: STABLE Patient Instructions: Chronic Obstructive Pulmonary Disease Exacerbation Additional Instructions: Thank you for visiting [facility]. We appreciate you trusting us with your care. If any additional problems come up don't hesitate to return to visit us. Please follow up with your primary care provider so they can plan additional care if needed and know about the problem that you had. If symptoms worsen come back to the Emergency Department. Any concerning symptoms that start such as chest pain, shortness of air, weakness or numbness on one side of the body, running high fevers or any other concerning symptoms return to the ER. JOHN DÍAZ APRN Nov 12, 2019 14:48
[2019-11-12 14:53] LABS: BASO # 0.1 x10^3/uL (0.0-0.2); BASO % 1 % (0-3); EOS # 0.7 x10^3/uL (0.0-0.7); EOS % 10 % (0-3); HEMATOCRIT 36.3 % (36.0-47.0); HEMOGLOBIN 12.2 g/dL (12.0-15.5); LYMPH # 1.6 x10^3/uL (1.0-4.8); LYMPH % 23 % (24-48); MEAN CORPUSCULAR HEMOGLOBIN 25 pg (25-35); MEAN CORPUSCULAR HGB CONC 34 g/dL (31-37); MEAN CORPUSCULAR VOLUME 76 fL (79-100); MONO # 0.5 x10^3/uL (0.0-1.1); MONO % 7 % (0-9); NEUT % 59 % (31-73); PLATELET COUNT 236 x10^3/uL (140-400); RED BLOOD COUNT 4.81 x10^6/uL (3.50-5.40); RED CELL DISTRIBUTION WIDTH 17.5 % (11.5-14.5); WHITE BLOOD COUNT 6.9 x10^3/uL (4.0-11.0)
[2019-11-12 14:59] LABS: CALCIUM 8.4 mg/dL (8.5-10.1); CREATININE 1.3 mg/dL (0.6-1.0); GFR 41.2; POTASSIUM 4.8 mmol/L (3.5-5.1)
--- NOTE | 2019-11-12 15:03 | RAD ---
Exam performed: 2 views of the chest. Indication: Shortness of breath Date of Service: 11/12/2019 3:42 PM . Comparison : One view chest from June 12, 2019 Findings: PA and lateral radiographs of the chest reveal a normal cardiomediastinal contour. The lungs are clear. No pleural fluid is seen. The visualized osseous structures are unremarkable. Impression: No acute cardiopulmonary process seen. Electronically signed by: Norma Dupree MD (11/12/2019 3:00 PM) [facility]
[2019-11-12 15:04] LABS: ALBUMIN 3.3 g/dL (3.4-5.0); TOTAL BILIRUBIN 0.3 mg/dL (0.2-1.0); TOTAL PROTEIN 6.6 g/dL (6.4-8.2)
--- NOTE | 2019-11-12 15:40 | RAD ---
CT head without contrast dated 11/12/2019. No comparison available. CLINICAL INDICATION: Dizziness and blurry vision. TECHNIQUE: Contiguous axial imaging the head was performed from skull base to vertex. No contrast administered. One or more of the following individualized dose reduction techniques were utilized for this examination: 1. Automated exposure control 2. Adjustment of the mA and/or kV according to patient size 3. Use of iterative reconstruction technique FINDINGS: Ventricles and sulci are within normal limits for age. No midline shift or mass effect. Brain parenchyma is of normal attenuation. No hemorrhage or extra axial collection. Posterior fossa and brainstem unremarkable. Visualized paranasal sinuses and mastoid air cells are clear. No apparent calvarial abnormality. IMPRESSION: No evidence of acute intracranial abnormality. Electronically signed by: John Nguyen MD (11/12/2019 3:37 PM) [facility]
--- NOTE | 2019-11-12 15:43 | RAD ---
CT scan of the abdomen and pelvis without contrast 11/12/2019 CLINICAL HISTORY: Left flank pain. TECHNIQUE: Unenhanced, contiguous, 2 mm axial sections were obtained through the abdomen and pelvis. One or more of the following individualized dose reduction techniques were utilized for this study: 1. Automated exposure control. 2. Adjustment of the mA and/or kV according to patient size. 3. Use of iterative reconstruction technique. FINDINGS: Comparison study is dated 06/12/2019. Images through the lung bases demonstrate minimal dependent subsegmental atelectasis bilaterally. There is mild cardiomegaly. The liver, spleen, pancreas and adrenal glands are within normal limits. No renal or ureteral calculus is seen. No significant obstruction of either collecting system is noted. Atherosclerotic calcification of the abdominal aorta and its branches is noted. The abdominal aorta tapers normally. The gallbladder is contracted. No free fluid or free air is within the abdomen. There is no evidence of bowel obstruction. The appendix is well-visualized and is within normal limits. Images through the pelvis demonstrate the urinary bladder distended with urine. Calcifications are seen within the pelvis consistent with phleboliths. Scattered diverticula are seen involving the sigmoid colon. No inflammatory changes are seen in the adjacent fat. No free fluid is noted. Very mild S-shaped curvature of the thoracolumbar spine is seen. Degenerative changes are seen involving the thoracic and throughout the lumbar spine along with both hips. IMPRESSION: No acute abnormality is seen. Electronically signed by: Regan Bauer MD (11/12/2019 3:40 PM) [facility]
[2019-11-12 16:34] LABS: BILIRUBIN,URINE NEGATIVE (NEG); COLOR,URINE YELLOW; NITRITE,URINE NEGATIVE (NEG); PROTEIN,URINE NEGATIVE (NEG-TRACE); UROBILINOGEN,URINE 0.2 mg/dL (0.2 mg/dL)
[2019-11-12 16:42] LABS: CLARITY,URINE CLEAR
[2019-11-12 16:43] LABS: BACTERIA,URINE 0 /HPF (0-FEW); RBC,URINE 0 /HPF (0-2); SQUAMOUS EPITHELIAL CELL,UR FEW /LPF; WBC,URINE 0 /HPF (0-4)
[2019-11-12 16:50] VITALS: BP 157/70
--- NOTE | 2019-11-13 06:20 | EKG ---
[facility] [address] [place] [address] Test Date: 2019-11-12 Test Time: 15:10:25 Pat Name: MURRAY KOHLI Department: Room: Gender: F [employer]: : 1955 Requested By: FABRIZIO DÍAZ Order Number: [id number] Reading MD: Measurements Intervals [place] Rate: 63 P: CO: QRS: 19 QRSD: 78 T: 100 QT: 416 QTc: 429 Interpretive Statements IRREGULAR RHYTHM, NO P-WAVE FOUND QRS(T) CONTOUR ABNORMALITY CONSIDER ANTEROLATERAL MYOCARDIAL DAMAGE POSSIBLY ABNORMAL ECG RI6.01 No previous ECG available for comparison
== END 2019-11-12 17:00 | disposition home or self-care (01) ==
LOC: ER 14:26
DX: J44.1 Chronic obstructive pulmonary disease with (acute) exacerbation (principal); I12.9 Hypertensive chronic kidney disease with stage 1 through stage 4 chronic kidney disease, or unspecified chronic kidney disease; E11.22 Type 2 diabetes mellitus with diabetic chronic kidney disease; N18.9 Chronic kidney disease, unspecified; Z90.710 Acquired absence of both cervix and uterus; Z88.1 Allergy status to other antibiotic agents; Z88.5 Allergy status to narcotic agent
CPT/HCPCS: 36415; 70450; 71046; 74176; 80053; 81001; 83690; 83880; 84145; 84484; 85025; 93005; 94640; 96374; 99285; J3010; J7620